=== PATIENT | male | born 1945 | race Caucasian/White ===

== ENCOUNTER 2017-05-30 11:26 | Emergency (ER) | payer BC, MEDICARE ==
--- NOTE | 2017-05-30 12:15 | RAD ---
INDICATION: Short of breath COMPARISON: September 04, 2011 TECHNIQUE: PA and lateral dual-energy views were obtained. FINDINGS: Bones/Soft Tissues: There are no acute bony findings. Cardiomediastinal: The cardiomediastinal silhouette is normal. Lungs: There are no infiltrates. There is mild hyperinflation Pleura: There are no pleural effusions. Other: None IMPRESSION: NO ACTIVE DISEASE
[2017-05-30 13:20] LABS: ABS Basophils 0.1 10^3/ul (0-0.2); ABS Eosinophils 0 10^3/ul (0-0.6); ABS Lymphocytes 1.1 10^3/ul (1.0-4.8); ABS Monocytes 0.6 10^3/ul (0-0.8); ABS Neutrophils 6.3 10^3/ul (1.5-7.7); ABS Nucleated RBC 0 10^3/ul; Eosinophil % 0.2 % (0-6); Hematocrit 46 % (42-52); Hemoglobin 15.9 g/dl (14.0-18.0); Lymphocyte % 13.5 % (25-47); Mean Corpuscular HGB Conc 34 g/dl (31-36); Mean Corpuscular Hemoglobin 30 pg (27-31); Mean Corpuscular Volume 88 fL (80-94); Mean Platelet Volume 7 um3 (7.4-10.4); Nucleated Red Blood Cells % 0; Platelet Count 256 10^3/ul (150-450); Red Blood Count 5.24 10^6/ul (4.0-5.4); Red Cell Distribution Width 14 % (10.5-15); White Blood Count 8.1 10^3/ul (3.5-10.8)
[2017-05-30 13:26] LABS: INR 0.98 (0.77-1.02)
[2017-05-30 13:34] LABS: EGFR Non-African American 79.6 (>60)
[2017-05-30] MEDS ORDERED: Albuterol/Ipratropium NEB.SOL* Albuterol 2.5 MG/Ipratropium 0.5 MG 3 ML INH ONE (14:10)
[2017-05-30] MEDS ORDERED: NS 0.9% 1000 ML* 1,000 ML IV ONE (14:10)
[2017-05-30 15:34] VITALS: BP 135/71
--- NOTE | 2017-05-30 18:20 | ED ---
Salomon Rosenthal Natalie, scribed for Tristian Obregon MD on 05/30/17 at 1418 . Shortness of Breath - HPI Summary HPI Summary: The pt is a 71 y/o M presenting to the ED c/o SOB starting five days ago. The patient was at the gym last week and exerted more energy than normal. The pt describes the pain as exertion discomfort. The discomfort is aggravated by walking fast and is alleviated by rest. The patient has treated the pain with nothing GUIDE TRAVEL. Pt additionally c/o increased pulsed (nml 76, walking at 90), insomnia (3-5 hours a night), anxiety, dizziness, and buzzing in ear. Pt denies diarrhea, vomiting, cough, congestion, chest pain, and edema. He had a similar episode about a year ago. The patient has not traveled recently. His most recent stress test was this fall, each of his past stress tests have been normal. He takes prostate medication at night. He has an appointment to get a Holter monitor on 06/02/2017. He does not smoke or drink. - History of Current Complaint Chief Complaint: EDGeneral Time Seen by Provider: 05/30/17 11:49 Hx Obtained From: Patient Onset/Duration: Lasting Days - started five days ago after going to the gym, Still Present Timing: Constant Current Severity: Moderate Aggrevating Factors: Other - walking fastr Alleviating Factors: Other - rest Associated Signs & Symptoms: Negative - NEGATIVE: diarrhea, vomitting, cough, congestion, chest pain, edema, Dizzy Related History: Similar Episode - similar episode one year ago - Allergy/Home Medications Allergies/Adverse Reactions: Allergies Allergy/AdvReac Type Severity Reaction Status Date / Time No Known Allergies Allergy Verified 05/30/17 11:35 PMH/Surg Hx/FS Hx/Imm Hx Previously Healthy: No Cardiovascular History: Reports: Hx Hypertension Infectious Disease History: No Infectious Disease History: Denies: Traveled Outside the [place] in Last 30 Days - Family History Known Family History: Positive: Hypertension, Diabetes - Social History Alcohol Use: None Substance Use Type: Reports: None Smoking Status (MU): Never Smoked Tobacco Review of Systems Negative: Fever Positive: Other - buzzing in ear Positive: Other - increased pulse. Negative: Chest Pain Positive: Shortness Of Breath, Other - NEGATIVE: congestion. Negative: Cough Negative: Vomiting, Diarrhea Negative: Edema Neurological: Other - insomnia, dizziness All Other Systems Reviewed And Are Negative: Yes Physical Exam Triage Information Reviewed: Yes Vital Signs On Initial Exam: Initial Vitals Temp Pulse Resp BP Pulse Ox 98.4 F 77 16 150/70 96 05/30/17 11:35 05/30/17 11:35 05/30/17 11:35 05/30/17 11:35 05/30/17 11:35 Vital Signs Reviewed: Yes Appearance: Positive: Well-Appearing, No Pain Distress Skin: Positive: Warm, Skin Color Reflects Adequate Perfusion, Dry Head/Face: Positive: Normal Head/Face Inspection Eyes: Positive: EOMI, GORAN ENT: Positive: Normal ENT inspection Neck: Positive: Supple, Nontender Respiratory/Lung Sounds: Positive: Clear to Auscultation, Breath Sounds Present Cardiovascular: Positive: RRR, Pulses are Symmetrical in both Upper and Lower Extremities, Other - HR did not change with alteration or position Abdomen Description: Positive: Nontender, Soft Bowel Sounds: Positive: Present Musculoskeletal: Positive: Normal, Strength/ROM Intact Neurological: Positive: Normal, Sensory/Motor Intact, Alert, Oriented to Person Place, Time - She Coma Scale Coma Scale Total: 15 Diagnostics - Vital Signs Vital Signs Temp Pulse Resp BP Pulse Ox 05/30/17 13:39 66 15 98 05/30/17 13:37 134/70 05/30/17 13:29 98.7 F 72 16 151/71 97 05/30/17 11:35 98.4 F 77 16 150/70 96 - Laboratory Lab Results: Lab Results 05/30/17 05/30/17 05/30/17 Range/Units 12:55 12:55 12:55 WBC 8.1 (3.5-10.8) 10^3/ul RBC 5.24 (4.0-5.4) 10^6/ul Hgb 15.9 (14.0-18.0) g/dl Hct 46 (42-52) % MCV 88 (80-94) fL MCH 30 (27-31) pg MCHC 34 (31-36) g/dl RDW 14 (10.5-15) % Plt Count 256 (150-450) 10^3/ul MPV 7 L (7.4-10.4) um3 Neut % (Auto) 78.3 (38-83) % Lymph % (Auto) 13.5 L (25-47) % [place] % (Auto) 7.3 (1-9) % Eos % (Auto) 0.2 (0-6) % Baso % (Auto) 0.7 (0-2) % Absolute Neuts (auto) 6.3 (1.5-7.7) 10^3/ul Absolute Lymphs (auto) 1.1 (1.0-4.8) 10^3/ul Absolute Monos (auto) 0.6 (0-0.8) 10^3/ul Absolute Eos (auto) 0 (0-0.6) 10^3/ul Absolute Basos (auto) 0.1 (0-0.2) 10^3/ul Absolute Nucleated RBC 0 10^3/ul Nucleated RBC % 0 INR (Anticoag Therapy) (0.77-1.02) Sodium 137 (133-145) mmol/L Potassium 3.9 (3.5-5.0) mmol/L Chloride 104 (101-111) mmol/L Carbon Dioxide 25 (22-32) mmol/L Anion Gap 8 (2-11) mmol/L BUN 14 (6-24) mg/dL Creatinine 0.93 (0.67-1.17) mg/dL Est GFR ( Amer) 102.4 (>60) Est GFR (Non-Af Amer) 79.6 (>60) BUN/Creatinine Ratio 15.1 (8-20) Glucose 106 H (70-100) mg/dL Lactic Acid (0.5-2.0) mmol/L Calcium 9.8 (8.6-10.3) mg/dL Total Bilirubin 0.70 (0.2-1.0) mg/dL AST 20 (13-39) U/L ALT 13 (7-52) U/L Alkaline Phosphatase 65 (34-104) U/L Troponin I 0.00 (<0.04) ng/mL C-Reactive Protein 1.29 (< 5.00) mg/L B-Natriuretic Peptide 55 ( - 100) pg/mL Total Protein 7.3 (6.4-8.9) g/dL Albumin 4.3 (3.2-5.2) g/dL Globulin 3.0 (2-4) g/dL Albumin/Globulin Ratio 1.4 (1-3) 05/30/17 05/30/17 Range/Units 12:55 12:55 WBC (3.5-10.8) 10^3/ul RBC (4.0-5.4) 10^6/ul Hgb (14.0-18.0) g/dl Hct (42-52) % MCV (80-94) fL MCH (27-31) pg MCHC (31-36) g/dl RDW (10.5-15) % Plt Count (150-450) 10^3/ul MPV (7.4-10.4) um3 Neut % (Auto) (38-83) % Lymph % (Auto) (25-47) % [place] % (Auto) (1-9) % Eos % (Auto) (0-6) % Baso % (Auto) (0-2) % Absolute Neuts (auto) (1.5-7.7) 10^3/ul Absolute Lymphs (auto) (1.0-4.8) 10^3/ul Absolute Monos (auto) (0-0.8) 10^3/ul Absolute Eos (auto) (0-0.6) 10^3/ul Absolute Basos (auto) (0-0.2) 10^3/ul Absolute Nucleated RBC 10^3/ul Nucleated RBC % INR (Anticoag Therapy) 0.98 (0.77-1.02) Sodium (133-145) mmol/L Potassium (3.5-5.0) mmol/L Chloride (101-111) mmol/L Carbon Dioxide (22-32) mmol/L Anion Gap (2-11) mmol/L BUN (6-24) mg/dL Creatinine (0.67-1.17) mg/dL Est GFR ( Amer) (>60) Est GFR (Non-Af Amer) (>60) BUN/Creatinine Ratio (8-20) Glucose (70-100) mg/dL Lactic Acid 0.8 (0.5-2.0) mmol/L Calcium (8.6-10.3) mg/dL Total Bilirubin (0.2-1.0) mg/dL AST (13-39) U/L ALT (7-52) U/L Alkaline Phosphatase (34-104) U/L Troponin I (<0.04) ng/mL C-Reactive Protein (< 5.00) mg/L B-Natriuretic Peptide ( - 100) pg/mL Total Protein (6.4-8.9) g/dL Albumin (3.2-5.2) g/dL Globulin (2-4) g/dL Albumin/Globulin Ratio (1-3) Result Diagrams: 05/30/17 12:55 05/30/17 12:55 Lab Statement: Any lab studies that have been ordered have been reviewed, and results considered in the medical decision making process. - Radiology CXR Xray Interpretation: No Acute Changes - No active disease. ED physician has reviewed this report. Radiology Interpretation Completed By: Radiologist - EKG 11:42 Cardiac Rate: NL EKG Rhythm: Sinus Rhythm - 63 BPM EKG Interpretation: Nml axis. Nml ST. Course/Dx - Course Course Of Treatment: anxious gentlemen who leads very active lifestyle. C/O postural changes in HR and some SOB. HR 70s now and O2 sat and HR not significantly altered by brisk walking in the ED. ECG, etc have been normal. It appears this may be from some mild dehydation and an effect of his alpha alison taken for BPH. He has holter set up for 10:30 morning and will f/u with PMD. - Diagnoses Provider Diagnoses: Mild dehydration, Adverse effects of medication Discharge - Discharge Plan Condition: Good Disposition: HOME Patient Education Materials: Dehydration (ED) Referrals: Lewis HERZOG,August Dillon [Primary Care Provider] - Additional Instructions: see your doctor as scheduled on Friday for holter monitor. Stay well hydrated. Expect lightheadedness when you stand first thing in the morning from your prostate medications. Return if worse, new symptoms or other concerns. The documentation as recorded by the Salomon slater Natalie accurately reflects the service I personally performed and the decisions made by me, Tristian Obregon MD.
== END 2017-05-30 15:42 | disposition home or self-care (01) ==
LOC: ED 11:26
DX: T50.905A Adverse effect of unspecified drugs, medicaments and biological substances, initial encounter (principal); R06.02 Shortness of breath; E86.0 Dehydration; Y92.9 Unspecified place or not applicable
CPT/HCPCS: 36415; 71020; 80053; 83605; 83880; 84484; 85025; 85610; 86140; 87040; 87502; 93005; 94640; 96360; 99283; A9270-GY

== ENCOUNTER 2017-06-13 20:12 | Emergency (ER) | payer BC, MEDICARE ==
[2017-06-13 22:45] LABS: ABS Basophils 0.1 10^3/ul (0-0.2); ABS Eosinophils 0.1 10^3/ul (0-0.6); ABS Lymphocytes 1.5 10^3/ul (1.0-4.8); ABS Monocytes 0.8 10^3/ul (0-0.8); ABS Neutrophils 6.8 10^3/ul (1.5-7.7); ABS Nucleated RBC 0 10^3/ul; Eosinophil % 1.4 % (0-6); Hematocrit 42 % (42-52); Hemoglobin 14.7 g/dl (14.0-18.0); Lymphocyte % 16.2 % (25-47); Mean Corpuscular HGB Conc 35 g/dl (31-36); Mean Corpuscular Hemoglobin 31 pg (27-31); Mean Corpuscular Volume 88 fL (80-94); Mean Platelet Volume 6 um3 (7.4-10.4); Nucleated Red Blood Cells % 0.1; Platelet Count 340 10^3/ul (150-450); Red Blood Count 4.81 10^6/ul (4.0-5.4); Red Cell Distribution Width 14 % (10.5-15); White Blood Count 9.3 10^3/ul (3.5-10.8)
[2017-06-13] MEDS ORDERED: NS 0.9% 1000 ML* 1,000 ML IV ONE (22:59)
[2017-06-13] MEDS ORDERED: Iohexol 350* (CONTRAST) 500 ML MDV IV ONE (23:23)
--- NOTE | 2017-06-13 23:42 | ED ---
Cornelio Rosenthal Nilda, scribed for Tano Morejon MD on 06/13/17 at 2208 . Respiratory - HPI Summary HPI Summary: This patient is a 71 year old M with a chief complaint of constant air hunger for past 2 weeks with D-Dimer of [address] Mary Anne Alejo sends pt in for CTA of the chest. The patient rates the pain 0/10 in severity. Symptoms aggravated by exertion, and alleviated by rest. Patient reports abd tightness secondary to stress, diaphoresis, and mild blood tinge when blowing his nose (likely secondary to sleep apnea). Pt states that he is "stressed in nearly every aspect of my life-home, work." Patient denies CP, chest discomfort , dyspnea, fever, chills, epistaxis, bloody stools, and hemoptysis. Pt denies recent prolonged travel and recent trauma except for left shoulder injury ( anterior deltoid) while working out. PMHx includes sleep apnea. - History of Current Complaint Chief Complaint: EDShortnessOfBreath Stated Complaint: ABNORMAL LABS Time Seen by Provider: 06/13/17 21:45 Hx Obtained From: Patient, Medical Records Onset/Duration: Sudden Onset, Lasting Weeks - 2 weeks, Still Present Timing: Constant Pain Intensity: 0 Character: Dyspnea on Exertion Aggravating Factor(s): Exertion Alleviating Factor(s): Rest Associated Signs and Symptoms: SOB, Diaphoresis - Allergy/Home Medications Allergies/Adverse Reactions: Allergies Allergy/AdvReac Type Severity Reaction Status Date / Time No Known Allergies Allergy Verified 05/30/17 11:35 PMH/Surg Hx/FS Hx/Imm Hx Cardiovascular History: Reports: Hx Hypertension Respiratory History: Reports: Hx Sleep Apnea Sensory History: Denies: Hx Deafness EENT History: Denies: Hx Deafness Infectious Disease History: No Infectious Disease History: Denies: Traveled Outside the [place] in Last 30 Days - Family History Known Family History: Positive: Hypertension, Diabetes Negative: Cardiac Disease, Blood Disorder - no blood clots - Social History Occupation: Employed Full-time Lives: With Family Alcohol Use: None Substance Use Type: Reports: None Smoking Status (MU): Never Smoked Tobacco Review of Systems Negative: Fever, Chills Negative: Erythema Positive: Other - mild blood tinge while blowing nose possibly secondary to sleep apnea. Negative: Epistaxis, Sore Throat Negative: Palpitations, Chest Pain Positive: Shortness Of Breath, Other - air hunger; negative hemoptysis, dyspnea. Negative: Cough Positive: Other - negative bloody stools. Negative: Abdominal Pain, Vomiting, Nausea Negative: dysuria, hematuria Negative: Myalgia, Edema Negative: Rash Neurological: Other - negative dizziness All Other Systems Reviewed And Are Negative: Yes Physical Exam - Summary Physical Exam Summary: Constitutional: Well-developed, Well-nourished, Alert. (-) Distressed Skin: Warm, Dry HENT: Normocephalic; Atraumatic Eyes: Conjunctiva normal Neck: Musculoskeletal ROM normal neck. (-) JVD, (-) Stridor, (-) Tracheal deviation Cardio: Rhythm regular, rate normal, Heart sounds normal; Intact distal pulses; The pedal pulses are 2+ and symmetric. Radial pulses are 2+ and symmetric. (-) Murmur Pulmonary/Chest wall: Effort normal. (-) Respiratory distress, (-) Wheezes, (-) Rales Abd: Soft, (-) Tenderness, (-) Distension, (-) Guarding, (-) Rebound Musculoskeletal: (-) Edema, mild tenderness along left bicep, no swelling, no redness. Lymph: (-) Cervical adenopathy Neuro: Alert, Oriented x3 Psych: Mood and affect Normal Triage Information Reviewed: Yes Vital Signs On Initial Exam: Initial Vitals Temp Pulse Resp BP Pulse Ox 98.7 F 73 16 135/73 99 06/13/17 20:19 06/13/17 20:19 06/13/17 20:19 06/13/17 20:19 06/13/17 20:19 Vital Signs Reviewed: Yes Diagnostics - Vital Signs Vital Signs Temp Pulse Resp BP Pulse Ox 06/13/17 20:19 98.7 F 73 16 135/73 99 - Laboratory Result Diagrams: 06/13/17 22:25 Lab Statement: Any lab studies that have been ordered have been reviewed, and results considered in the medical decision making process. - EKG 2203 Cardiac Rate: NL EKG Rhythm: Sinus Rhythm - 62 bpm EKG Interpretation: no STEMI Disposition - Course Assessment/Plan: This patient is a 71 year old M with a chief complaint of constant air hunger for past 2 weeks with D-Dimer of [address] Mary Anne Alejo sends pt in for CTA of the chest. The patient rates the pain 0/10 in severity. Symptoms aggravated by exertion, and alleviated by rest. Patient reports abd tightness secondary to stress, diaphoresis, and mild blood tinge when blowing his nose (likely secondary to sleep apnea). Pt states that he is "stressed in nearly every aspect of my life-home, work." Patient denies CP, chest discomfort, dyspnea, fever, chills, epistaxis, bloody stools, and hemoptysis. Pt denies recent prolonged travel and recent trauma except for left shoulder injury (anterior deltoid) while working out. PMHx includes sleep apnea. Pending Labs, EKG, and CTA Chest. An EKG reveals 62 bpm, NSR, no STEMI. This pt will be signed out to Dr. Low, pending shift change, awaiting CTA chest. Dx of SOB and elevated D-dimer. - Diagnoses Provider Diagnoses: SOB (shortness of breath), Elevated d-dimer Discharge - Discharge Plan Condition: Stable Disposition: OTHER Discharge Disposition Comment: s/o to Dr. Low, pending shift change, awaiting CTA Chest. Referrals: Lewis HERZOG,August Dillon [Primary Care Provider] - The documentation as recorded by the Cornelio slater Nilda accurately reflects the service I personally performed and the decisions made by me, Tano Morejon MD.
[2017-06-14 03:32] VITALS: BP 135/102
--- NOTE | 2017-06-14 08:38 | RAD ---
Indication: Shortness of breath, positive d-dimer. Contrast: Administered 62.0 ml of VISAPAQUE 320 mg/ml CTA of the chest was performed without IV contrast demonstration. The pulmonary arterial tree is well opacified. There is no evidence of pulmonary embolus. No filling defects are noted. The aorta demonstrates no evidence of aortic dissection. No aneurysmal dilatation is noted. The heart demonstrates no pericardial effusion. Inferior thyroid lobes are unremarkable. There is no mediastinal or hilar adenopathy. The heart demonstrates no pericardial effusion. The trachea and major bronchi appear patent. The lung fraga demonstrate no evidence of alveolar consolidation. No pneumothorax is noted. The visualized abdominal organs are otherwise unremarkable. Axilla demonstrates no evidence of abnormal adenopathy. IMPRESSION: No pulmonary embolus is noted. No evidence of aortic dissection is noted. No pulmonary nodules are noted.
--- NOTE | 2017-06-14 11:27 | RAD ---
Indication: Increased d-dimer. Duplex Doppler sonography of the deep venous system of both lower extremities was performed. Bilaterally the common femoral veins, proximal greater saphenous veins, proximal deep femoral veins, femoral veins, popliteal veins, posterior tibial veins and peroneal veins appear patent and compressible. IMPRESSION: NO EVIDENCE OF DEEP VENOUS THROMBOSIS OF EITHER LOWER EXTREMITY IS PRESENT.
== END 2017-06-14 03:31 | disposition home or self-care (01) ==
LOC: ED 20:12
DX: R06.02 Shortness of breath (principal); R79.1 Abnormal coagulation profile; Z86.79 Personal history of other diseases of the circulatory system
CPT/HCPCS: 36415; 71275; 80053; 83605; 84484; 85025; 87040; 93005; 93970; 96360; 99283; Q9967

== ENCOUNTER 2017-06-24 12:46 | Inpatient (IN) | payer BC, MEDICARE ==
--- OUTSIDE RECORDS SUMMARY | 2017-06-24 13:25 | XMS REPORT ---
:1945 External Reference #:[id number] Author Organization [employer] [facility] [employer] Address [address] [address] Phone [phone] Care Team Providers Name Role Phone Edison Hidalgo MD Primary Care Physician Unavailable Payers Type Date Identification Numbers Payment Provider Subscriber Commercial Policy Number: [id number] [facility] August Johnstonler PayID: [id number] [address] [place] [address] Medigap Part B Policy Number: [id number] Medicare Aguust Johnstonler PayID: [id number] [address] [place] [address] Medigap Part B Policy Number: [id number] [facility] August Johnstonler PayID: [id number] [address] [place] [address] Problems Date Description Provider Status Onset: 06/19/2017 Anxiety state Nino Browning MD Active Onset: 06/19/2017 Bilateral tinnitus Nino Browning MD Active Onset: 06/19/2017 Dizziness and giddiness Nino Browning MD Active Onset: 06/19/2017 Lyme disease Nino Browning MD Active Social History Type Date Description Comments ETOH Use Occasionally consumes alcohol Smoking Patient has never smoked Allergies, Adverse Reactions, Alerts Date Description Reaction Status Severity Comments 06/19/2017 NKDA active Medications Medication Date Status Form Strength Qnty SIG Indications Ordering Provider Doxycycline Active Capsules 100mg 1 bid Unknown Hyclate 00 Tamsulosin HCL Active Capsules 0.4mg 1 qd Unknown 00 Finasteride Active Tablets 5mg 1 qd Unknown 00 Polyethylene Active Powder 3350NF prn Unknown Glycol 3350 00 Vital Signs Date Vital Result Comment 06/19/2017 Height 66.5 inches 5'6.50" Weight 142.50 lb Heart Rate 76 /min BP Systolic Sitting 120 mmHg BP Diastolic Sitting 78 mmHg BMI (Body Mass Index) 22.7 kg/m2 Results Description No Information Procedures Date CPT Code Description Status 07/08/2010 90330 Color Flow Doppler/Interp & Reprt Completed 07/08/2010 71836 Pulse Wave/Continuous-Interp.RPT Completed 07/08/2010 44395 ECHO Transthorasic Realtime 2D W Doppler & Color Completed Flow Hosp 07/08/2010 27387 Treadmill Interp/Report Only Completed 07/08/2010 55969 Treadmill Interp/Report Only Completed 07/08/2010 84100 Stress Test Supervsn W/Out I/R Completed 07/08/2010 94048 Stress Test Supervsn W/Out I/R Completed 07/08/2010 95949 EKG, Interpretation Only Completed 07/07/2010 42728 EKG, Interpretation Only Completed 07/06/2010 84561 EKG, Interpretation Only Completed Encounters Type Date Location Provider CPT E/M Dx Office Visit 07/08/2010 1:45p [facility] Lam Bonds, 56164 427.0 MLindyDLindy [phone] Office Visit 07/07/2010 2:18p [facility] Lam Bonds M.D. 38989 427.0 427.89 401.1 794.31 Plan of Care 06/19/2017 - Nino Browning, MDA69.20 Lyme disease, [id number] Dizziness and [id number] Tinnitus, bilateralNew Xrays:MRI Brain W/OFollow up:3 [id number] Anxiety disorder, unspecified
[2017-06-24 13:35] LABS: ABS Basophils 0.1 10^3/ul (0-0.2); ABS Eosinophils 0.1 10^3/ul (0-0.6); ABS Lymphocytes 1.7 10^3/ul (1.0-4.8); ABS Monocytes 0.8 10^3/ul (0-0.8); ABS Neutrophils 7.5 10^3/ul (1.5-7.7); ABS Nucleated RBC 0 10^3/ul; Eosinophil % 0.6 % (0-6); Hematocrit 47 % (42-52); Hemoglobin 16.2 g/dl (14.0-18.0); Lymphocyte % 16.8 % (25-47); Mean Corpuscular HGB Conc 35 g/dl (31-36); Mean Corpuscular Hemoglobin 30 pg (27-31); Mean Corpuscular Volume 87 fL (80-94); Mean Platelet Volume 6 um3 (7.4-10.4); Nucleated Red Blood Cells % 0.1; Platelet Count 309 10^3/ul (150-450); Red Blood Count 5.37 10^6/ul (4.0-5.4); Red Cell Distribution Width 14 % (10.5-15); White Blood Count 10.2 10^3/ul (3.5-10.8)
[2017-06-24 13:54] LABS: EGFR Non-African American 79.6 (>60)
[2017-06-24] MEDS ORDERED: NS 0.9% 1000 ML* 1,000 ML IV ONE ×2 (13:55→15:45)
[2017-06-24] MEDS ORDERED: Levofloxacin 750 MG IVPREMIX(* 750 MG/150 ML BAG IVPB ONE (13:56)
[2017-06-24 15:11] LABS: Urine Appearance Clear; Urine Blood 1+ (Negative); Urine Color Straw; Urine Ketones Negative (Negative); Urine Protein Negative (Negative); Urine Specific Gravity 1.009 (1.010-1.030); Urine Urobilinogen Negative (Negative)
[2017-06-24] MEDS ORDERED: Ondansetron INJ* 2 MG/ML VIAL IV PRN (15:40)
--- NOTE | 2017-06-24 17:11 | RAD ---
Indication: Confusion. Sagittal and axial T1, axial T2, FLAIR, diffusion and susceptibility weighted images of the brain were obtained. Ventricular structures are midline. No midline shift is noted. There is central and cortical atrophy noted. Prominent cisterna magna is noted. The FLAIR images demonstrates no vasogenic edema. No restriction of diffusion is noted. Susceptibility weighted images demonstrates no susceptibility weighted artifact. The paranasal sinuses and mastoid air cells are otherwise unremarkable. IMPRESSION: Central and cortical atrophy. No intracranial mass or hemorrhage is identified.
--- NOTE | 2017-06-24 20:32 | HP ---
CC: Mary Anne Alejo MD from the [facility]; Dr. Emanuel; Dr. Browning * HISTORY AND PHYSICAL: DATE OF ADMISSION: 06/24/17 PRIMARY CARE PROVIDER: Mary Anne Alejo MD from the [facility]. CONSULTING INFECTIOUS DISEASE SPECIALIST: Dr. Emanuel. CONSULTING NEUROLOGIST: Dr. Browning. ATTENDING PROVIDER: Dr. Castillo * (DICTATED BY REVA SANTOS NP) CHIEF COMPLAINT: Altered mental status. HISTORY OF PRESENT ILLNESS: Mr. Waldron is a 71-year-old male patient. He has a history of hypertension, hyperlipidemia. He has a history of BPH, kidney stones in the past. He comes in to our ED today. According to the patient, he has had a 2- week period of progressive decline with his mentation. He has been more confused. His mentation has been altered. He apparently has had 10- pound weight loss, and this was obtained from discussion with Dr. Emanuel. The patient states he has had some suprapubic pain. He has had some dysuria. He felt warm last night. He states he has been having frequency. He was evaluated by his PCP prior to knowing these complaints and because of the general fatigue, anorexia, with him not feeling well, there was concern for Lyme. He was seen by Dr. Browning because of his mentation and him having trouble with some confusion and Dr. Browning felt that he needed an ID consult and Dr. Emanuel evaluated the patient today and after hearing these symptoms of dysuria, frequency, there was concern for a possible prostatitis. The patient was sent to the ER for this. On evaluation here, it was noted he had no fever, no white count, no CRP, so this was taken out of the differential. The patient states that he did have suprapubic pain. He has been having some dysuria off and on. He has been having some frequency. He has been having trouble emptying his bladder, but he had issues with this for some time. He denies any recent changes in medications. He denies having any back pain. He felt warm last night. He denies having any headaches. He does admit to having this 10-pound weight loss and fatigue. According to Dr. Emanuel's report, it was noted in his office that the patient appeared to be paranoid. He was having intermittent episodes of confusion. Because of these complaints, we were asked to evaluate for admission. PAST MEDICAL HISTORY: Significant for: 1. Hypertension. 2. Hyperlipidemia. 3. TOO. 4. BPH. 5. History of nephrolithiasis. PAST SURGICAL HISTORY: 1. He has had kidney stone surgery. 2. He has had tonsillectomy. MEDICATIONS: His home meds according to the list that was provided includes: 1. Zoloft 50 mg a day. 2. Flomax 0.4 mg daily. 3. Proscar 5 mg daily. 4. Doxycycline 100 mg p.o. b.i.d. ALLERGIES TO MEDICATIONS: Include no known drug allergies. FAMILY HISTORY: Both his parents had dementia and father had a history of CVA. SOCIAL HISTORY: He does not smoke, does not drink. 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 Surrogate decision maker is his . REVIEW OF SYSTEMS: There is no documented fever. He did admit to feeling warm last night. Denies having any significant weight change. There was no double vision. No ear discharge. Denied having any rhinorrhea. No sore throat. No thyroid enlargement. Denies having any chest pain. There is no orthopnea. No nocturnal dyspnea. There was no abdominal pain. There was no nausea, no vomiting. No dysuria. No frequency. There was no seizure. No loss of consciousness. No pruritus and no skin ulcerations. Review of 14 systems completed, all others negative. PHYSICAL EXAMINATION GENERAL: At this time, Mr. Waldron is a 71-year-old male patient. He appears to be well nourished, well developed. He does not appear to be in any acute distress. VITAL SIGNS: Blood pressure 132/80, pulse 76, respirations 18, O2 sat was 100% , temperature 98.6. HEENT: Head: Atraumatic, normocephalic. Eyes: EOMs intact. Sclerae anicteric and not pale. Throat: Oral mucosa appears to be moist. No oropharyngeal erythema. NECK: Supple. LUNGS: Clear to auscultation bilaterally. No wheezes, rales, or rhonchi. HEART: Sounds S1, S2. Regular rate and rhythm. No murmurs, rubs, or gallops. ABDOMEN: Soft, flat, nontender. Bowel sounds are present. No CVA tenderness. EXTREMITIES: Pulses were 2+ throughout. He is moving all 4 extremities with 5/ 5 strength. NEUROLOGIC: He is awake. He is alert. He appears to be oriented to time, place, and self. Tomato Grader were equal. No gross focal deficits. [id number], heel-to- chan intact bilaterally. SKIN: Intact. LABORATORY DATA/DIAGNOSTIC STUDIES: WBC of 10.2, RBC of 5.37, hemoglobin 16.2 , hematocrit 47, platelet count of 309,000. Sodium 132, potassium 3.9, chloride of 100, bicarb 25, BUN 17, creatinine 0.93, glucose of 115. Lactate 1.4. Calcium 9.9. Total bili 0.6, AST 20, ALT 16, alk phos 58. CRP less than 1. Albumin of 4.5. Urine showed low specific gravity, 1+ blood. He had an abdominal and bladder ultrasound, which showed impression: No renal calculi are seen. Dilated calyx versus small cyst in the left kidney. Enlarged heterogeneous prostate gland. The patient was unable to void at the end of the study. He had a CTA of the chest just done 11 days ago. It showed no PE, no evidence of aortic dissection. Old medical records were reviewed. ASSESSMENT AND PLAN: Mr. Waldron is a 71-year-old male patient coming in to the ED today with altered mental status, weight loss in the last 2 weeks. We were asked to evaluate for admission. He will be admitted under observation status for: 1. Altered mental status. Etiology of this is unclear. There could be underlying infection component, could be underlying neurological disease. Dr. Browning has been consulted. Dr. Emanuel has been consulted. We will get a B12 , TSH, ammonia, DANIEL, MRI of the brain, EEG, neuro checks and we will follow him. Holding off on antibiotics as I do not think there is any active infection currently. If he spikes a fever, we will sandra culture him and put him on broad spectrum antibiotics and we will follow. If his medical workup is negative, we may need to consider psychiatric evaluation, but we will continue with the medical evaluation first. 2. Hypertension. His blood pressure is stable. We will follow. 3. Hyperlipidemia. Follow with his primary. 4. Obstructive sleep apnea. I did order a CPAP. 5. Benign prostatic hypertrophy. Continue the Phillips. He did have urinary retention. He can follow with his urologist, Dr. Hummel. He does not appear to be actively infected. At this point, we will monitor. 6. History of nephrolithiasis. No pain noted. I think the blood in urine is probably from the Phillips insertion, but we will continue to follow. 7. DVT prophylaxis. He will be placed on heparin subcu. 8. Code status. Full code. 9. Fluids, electrolytes, and nutrition. He can have a regular diet. TIME SPENT: On admission was 60 minutes, greater than half the time was spent face- to-face with the patient obtaining my history and physical, other half time was spent going over the plan of care with the patient and implementing plan of care. I did discuss the plan of care with my attending, Dr. Castillo; she is in agreement. REVA SANTOS, MICHELLE [id number]/[facility] #: [id number] MAR
[2017-06-24] MEDS: Heparin VIAL(*) 5000 UNITS/ML VIAL (FIVE THOUSAND) SUBCUT SCH (21:21)
[2017-06-25] MEDS: Acetaminophen TAB* 325 MG PO PRN ×2 (05:39→09:58)
[2017-06-25] MEDS: Heparin VIAL(*) 5000 UNITS/ML VIAL (FIVE THOUSAND) SUBCUT SCH ×3 (06:02→20:37)
[2017-06-25 06:24] LABS: ABS Basophils 0.1 10^3/ul (0-0.2); ABS Eosinophils 0.1 10^3/ul (0-0.6); ABS Lymphocytes 1.7 10^3/ul (1.0-4.8); ABS Monocytes 0.9 10^3/ul (0-0.8); ABS Neutrophils 6.8 10^3/ul (1.5-7.7); ABS Nucleated RBC 0 10^3/ul; Eosinophil % 0.9 % (0-6); Hematocrit 45 % (42-52); Hemoglobin 16.1 g/dl (14.0-18.0); Lymphocyte % 18.1 % (25-47); Mean Corpuscular HGB Conc 36 g/dl (31-36); Mean Corpuscular Hemoglobin 31 pg (27-31); Mean Corpuscular Volume 87 fL (80-94); Mean Platelet Volume 7 um3 (7.4-10.4); Nucleated Red Blood Cells % 0; Platelet Count 290 10^3/ul (150-450); Red Blood Count 5.19 10^6/ul (4.0-5.4); Red Cell Distribution Width 14 % (10.5-15); White Blood Count 9.6 10^3/ul (3.5-10.8)
[2017-06-25 06:38] LABS: EGFR Non-African American 77.7 (>60)
[2017-06-25 06:46] LABS: INR 1.05 (0.77-1.02)
[2017-06-25] MEDS: Sertraline* 50 MG TAB PO SCH ×3 (09:58→16:45)
[2017-06-25] MEDS: Finasteride TAB* 5 MG PO SCH (09:58)
[2017-06-25] MEDS: Tamsulosin CAP* 0.4 MG PO SCH (09:58)
--- NOTE | 2017-06-25 11:05 | PN ---
Progress Note - Progress Note Date of Service: 06/25/17 SOAP: Subjective: CC: anorexia HPI: 71 year old man with 3-4 weeks anorexia, decreased energy, 10 lb weight loss, worsening nocturia and urinary hesitancy; he is concerned that we are defrauding his insurance and working to take away his medical license. His had noticed worsening of these ideas at night including that he had called the customer insight analyst's office from home about these issues. Found to have retained 500 cc urine and leos catheter placed, he wants to remove the catheter himself. No fever here. Objective: Vital Signs Temp 36.6 C 06/25/17 07:56 Pulse 57 06/25/17 07:56 Resp 16 06/25/17 07:56 BP 124/73 06/25/17 07:56 Pulse Ox 98 06/25/17 07:56 Intake & Output 06/24/17 06/25/17 06/25/17 18:59 06:59 18:59 Intake Total 1140 0 Output Total 2400 Balance 1140 -2400 Weight 143 lb Intake: IV Fluids 1140 Oral 0 Output: Urine 0 Leos 2400 Other: # Bowel Movements 0 Gen:Awake, no distress Neuro: flat affect, answers questions, oriented to name and location HEENT:PERRL, MMM Heart:RRR no murmur Lungs:CTA BL Abd:+BS NTND soft Skin: no rash Laboratory Results - last 24 hr 06/24/17 06/24/17 06/24/17 13:17 13:17 13:17 WBC 10.2 RBC 5.37 Hgb 16.2 Hct 47 MCV 87 MCH 30 MCHC 35 RDW 14 Plt Count 309 MPV 6 L Neut % (Auto) 73.4 Lymph % (Auto) 16.8 L [place] % (Auto) 8.2 Eos % (Auto) 0.6 Baso % (Auto) 1.0 Absolute Neuts (auto) 7.5 Absolute Lymphs (auto) 1.7 Absolute Monos (auto) 0.8 Absolute Eos (auto) 0.1 Absolute Basos (auto) 0.1 Absolute Nucleated RBC 0 Nucleated RBC % 0.1 INR (Anticoag Therapy) Sodium 132 L Potassium 3.9 Chloride 100 L Carbon Dioxide 25 Anion Gap 7 BUN 17 Creatinine 0.93 Est GFR ( Amer) 102.4 Est GFR (Non-Af Amer) 79.6 BUN/Creatinine Ratio 18.3 Glucose 115 H Lactic Acid 1.4 Calcium 9.9 Total Bilirubin 0.60 AST 20 ALT 16 Alkaline Phosphatase 58 Ammonia C-Reactive Protein < 1.00 Total Protein 7.3 Albumin 4.5 Globulin 2.8 Albumin/Globulin Ratio 1.6 Vitamin B12 TSH Urine Color Urine Appearance Urine pH Ur Specific [place] Urine Protein Urine Ketones Urine Blood Urine Nitrate Urine Bilirubin Urine Urobilinogen Ur Leukocyte Esterase Urine WBC (Auto) Urine RBC (Auto) Urine Bacteria Urine Glucose 06/24/17 06/24/17 06/24/17 13:45 18:30 18:30 WBC RBC Hgb Hct MCV MCH MCHC RDW Plt Count MPV Neut % (Auto) Lymph % (Auto) [place] % (Auto) Eos % (Auto) Baso % (Auto) Absolute Neuts (auto) Absolute Lymphs (auto) Absolute Monos (auto) Absolute Eos (auto) Absolute Basos (auto) Absolute Nucleated RBC Nucleated RBC % INR (Anticoag Therapy) Sodium Potassium Chloride Carbon Dioxide Anion Gap BUN Creatinine Est GFR ( Amer) Est GFR (Non-Af Amer) BUN/Creatinine Ratio Glucose Lactic Acid Calcium Total Bilirubin AST ALT Alkaline Phosphatase Ammonia 42 C-Reactive Protein Total Protein Albumin Globulin Albumin/Globulin Ratio Vitamin B12 358 TSH 2.82 Urine Color Straw Urine Appearance Clear Urine pH 8.0 Ur Specific [place] 1.009 L Urine Protein Negative Urine Ketones Negative Urine Blood 1+ H Urine Nitrate Negative Urine Bilirubin Negative Urine Urobilinogen Negative Ur Leukocyte Esterase Negative Urine WBC (Auto) Trace(0-5/hpf) Urine RBC (Auto) Trace(0-2/hpf) Urine Bacteria Absent Urine Glucose Negative 06/25/17 06/25/17 06/25/17 05:57 05:57 05:57 WBC 9.6 RBC 5.19 Hgb 16.1 Hct 45 MCV 87 MCH 31 MCHC 36 RDW 14 Plt Count 290 MPV 7 L Neut % (Auto) 71.3 Lymph % (Auto) 18.1 L [place] % (Auto) 9.1 H Eos % (Auto) 0.9 Baso % (Auto) 0.6 Absolute Neuts (auto) 6.8 Absolute Lymphs (auto) 1.7 Absolute Monos (auto) 0.9 H Absolute Eos (auto) 0.1 Absolute Basos (auto) 0.1 Absolute Nucleated RBC 0 Nucleated RBC % 0 INR (Anticoag Therapy) 1.05 H Sodium 133 Potassium 4.2 Chloride 102 Carbon Dioxide 23 Anion Gap 8 BUN 14 Creatinine 0.95 Est GFR ( Amer) 99.9 Est GFR (Non-Af Amer) 77.7 BUN/Creatinine Ratio 14.7 Glucose 106 H Lactic Acid Calcium 9.5 Total Bilirubin AST ALT Alkaline Phosphatase Ammonia C-Reactive Protein Total Protein Albumin Globulin Albumin/Globulin Ratio Vitamin B12 TSH Urine Color Urine Appearance Urine pH Ur Specific [place] Urine Protein Urine Ketones Urine Blood Urine Nitrate Urine Bilirubin Urine Urobilinogen Ur Leukocyte Esterase Urine WBC (Auto) Urine RBC (Auto) Urine Bacteria Urine Glucose Assessment: 1. anorexia and weight loss, paranoid ideation; infectious and metabolic workup so far unrevealing; does have urinary retention which may be contributing to some of his symptoms, but the differential includes rapidly progressive dementia , primary psychiatric issues including depression 2. BPH with urinary retention Plan: 1. Syphilis IgG pending 2. EEG done and pending 3. psychiatric consultation 4. leos catheter Discussed with Dr Graham
[2017-06-25] MEDS ORDERED: Midazolam* 1 MG/ML 5 ML VIAL (5 MG) ONE (15:05)
[2017-06-25] MEDS ORDERED: fentaNYL* 50 MCG/ML 2 ML VIAL (100 MCG VIAL) ONE (15:06)
[2017-06-25] MEDS ORDERED: Polyethylene Glycol 3350* 17 GM PACKET PO PRN (16:14)
--- NOTE | 2017-06-25 16:29 | PN ---
Subjective Date of Service: 06/25/17 Interval History: No overnight events. He expresses concern that his insurance will not pay for this hospitalization and that the MRI is going to be too expensive. He denies any pain, but does note some suprapubic discomfort. Family History: Unchanged from Admission Social History: Unchanged from Admission Past Medical History: Unchanged from Admission Objective Active Medications: Acetaminophen (Tylenol Tab*) 650 mg PO Q4H PRN PRN Reason: FEVER/PAIN Last Admin: 06/25/17 09:58 Dose: 650 mg Finasteride (Proscar Tab*) 5 mg PO DAILY PENDING SALE TO [facility] Last Admin: 06/25/17 09:58 Dose: 5 mg Heparin Sodium (Porcine) (Heparin Vial(*)) 5,000 units SUBCUT Q8HR PENDING SALE TO [facility] Last Admin: 06/25/17 15:30 Dose: Not Given Ondansetron HCl (Zofran Inj*) 4 mg IV Q6H PRN PRN Reason: NAUSEA Polyethylene Glycol/Electrolytes (Miralax*) 17 gm PO DAILY PRN PRN Reason: CONSTIPATION Quetiapine Fumarate (Seroquel Tab*) 25 mg PO BEDTIME PENDING SALE TO [facility] Sertraline HCl (Zoloft*) 50 mg PO DAILY PENDING SALE TO [facility] Last Admin: 06/25/17 10:04 Dose: Not Given Tamsulosin HCl (Flomax Cap*) 0.4 mg PO DAILY PENDING SALE TO [facility] Last Admin: 06/25/17 09:58 Dose: 0.4 mg Vital Signs - 8 hr 06/25/17 10:57 Temperature 97.5 F Pulse Rate 69 Respiratory 16 Rate Blood Pressure 128/64 (mmHg) O2 Sat by Pulse 99 Oximetry Oxygen Devices in Use Now: None Appearance: alert, well kept man Eyes: No Scleral Icterus Ears/Nose/Mouth/Throat: NL Teeth, Lips, Gums, - - no asterixis Neck: NL Appearance and Movements; NL JVP Respiratory: Symmetrical Chest Expansion and Respiratory Effort, Clear to Auscultation Cardiovascular: NL Sounds; No Murmurs; No JVD, RRR Abdominal: NL Sounds; No Tenderness; No Distention, - - leos catheter in place , mild tenderness in suprapubic area Lymphatic: No Cervical Adenopathy Extremities: No Edema Skin: No Rash or Ulcers Neurological: Alert and Oriented x 3, - - cognition is very clear, coordination is in tact, and follows complex commands. He expresses paranoid ideations. Result Diagrams: 06/25/17 05:57 06/25/17 05:57 Assess/Plan/Problems-Billing Assessment: - Patient Problems (1) Encephalopathy acute Current Visit: Yes Status: Acute Code(s): G93.40 - ENCEPHALOPATHY, UNSPECIFIED SNOMED Code(s): 6037384 Comment: the timeline is actually subacute, over the past few weeks. He demonstrates some psychotic features, but as per Dr. Browning's consultation, I agree with ruling out an organic cause with an LP and a complete csf analysis. A psychiatriatic evaluation is also appreciated. Thus far a metabolic and infectious work up are unremarkable. While acute urinary retention can contribute to delirium, the timeline is not consistent with this as the cause. I appreciate Dr. Browning and Dr. Lopez's input. (2) Acute urinary retention Current Visit: Yes Status: Acute Code(s): R33.8 - OTHER RETENTION OF URINE SNOMED Code(s): 880778170 Comment: relieved with leos catheter. He does have history of BPH, but is already on flomax and finasteride. We could increase the flomax, but will hold off for now. He is not on any anticholinergic medications that could contribute. Continue with leos.
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
--- NOTE | 2017-06-25 21:00 | CONS ---
CC: Dr. Mary Anne Alejo from [facility] in [place] * NEUROLOGIC CONSULTATION REPORT: DATE OF CONSULT: PATIENT OF: Dr. Graham; Dr. Emanuel; Dr. Mary Anne Alejo in [facility] in [place]. HISTORY OF PRESENT ILLNESS: This is a 71-year-old man who I am asked to evaluate for rapidly worsening psychological problems and confusion. He has had symptoms for the past 2 to 3 years of electrical buzzing in both ears and lightheadedness and this has gotten worse at times. In the past week and a half , he has been off work with difficulty focusing that is slowly worsening and initially his reading and thinking was not quite up to snuff, but this has gotten worse, particularly in the past 3 days' time. When I had seen him on the and he was a little bit anxious about the money issues, which he sometimes is, but it is a little bit more than usual in the past 3 or 4 days' time. Since then, he has become much more agitated. He thinks a gas pump is going to blow up. He is very agitated and is having some paranoid thinking that people are out to get him and that all his money is going to be taken away and this is clearly a change for him and he has had no prior history of significant psychiatric disease. He has had no unusual exposures. No blows to his head. He has had some 10-pound weight loss in the past several months to a year. He has recently been tested positive for chronic Lyme's, which Dr. Emanuel does not think that is unlikely to be changed. He has had normal B12, folic acid, sed rate and thyroid recently. PAST MEDICAL HISTORY: He has a past history of hypertension, hyperlipidemia, arthritis, BPH and nephrolithiasis. PAST SURGICAL HISTORY: He has had kidney stone surgery and tonsillectomy. MEDICATIONS: On admission include: 1. Zoloft 50 mg a day. 2. Flomax 0.4 mg daily. 3. Proscar 5 mg daily. 4. He has been on doxycycline [address] Emanuel has stopped now. ALLERGIES: He has no known drug allergies. FAMILY HISTORY: Both parents had dementia and his father had a CVA. SOCIAL HISTORY: He does not smoke or drink. He was a psychiatrist actively practising until 2 weeks ago. REVIEW OF SYSTEMS: Negative in all 14 spheres other than the HPI. PHYSICAL EXAM: Vital Signs: Temperature 97.5, pulse 69, respirations 16, blood pressure 128/64. He is alert and oriented, but has confused thoughts and somewhat agitated. He is very afraid that he is not going to be able to pay his medical bills, although he has apparently excellent insurance according to his . He has some odd thinking, his memory is 3/3 at this point. He speaks in fluent sentences. His affect is slightly odd. Cranial nerves II through XII were intact. Fundi were benign. Motor exam revealed normal tone, strength coordination and gait. Reflexes were 3+ and equal and he had a positive snout. Chest: Clear. Cardiovascular: Regular rate and rhythm. Abdomen is soft with positive bowel sounds. DIAGNOSTIC STUDIES/LAB DATA: He had an MRI scan which I reviewed showed some atrophy. His EEG showed no epileptiform potentials, triphasic waves or abnormal discharges. His labs included a normal CBC, INR of 1.05. CMP was normal other than his sodium initially was 32, now 133. He has normal TSH, B12. CRP was less than 1. Syphilis negative. UA negative. IMPRESSION AND PLAN: I discussed with his hospitalist as well as his that he has a several week history of rapidly progressive psychological disturbance in the absence of any significant psychiatric symptoms before other than some mild anxiety, for which he has never needed treatment. He has also had some confusion with this, although he is still relatively functioning. This is a subacute encephalopathy and I discussed with the and the hospitalist that this could be secondary to an autoimmune encephalopathy or paraneoplastic encephalopathy and I have recommend serum and CSF be sent for that and that the hospitalist do whatever neoplastic workup they feel appropriate, especially given the weight loss. Cryptococcal antigen is also going to be sent off as well as protein looking for Harry-Creutzfeldt. I think this is unlikely to be Harry-Creutzfeldt. There is no myoclonic jerks. The EEG is unremarkable. Psychiatry has been contacted as well and their opinion would be appreciated in this challenging patient. Cryptococcal studies and extra fluid will be saved on the CSF as well and autoimmune panel will be done as well. [id number]/[facility] #: [id number] [facility]
--- NOTE | 2017-06-25 21:42 | EEG ---
ELECTROENCEPHALOGRAPHY: DATE OF STUDY: 06/25/17 - ROOM #415 PATIENT OF: Dr. Meza. CLINICAL PROBLEM: This is a 71-year-old man being evaluated for altered mental status and delusions. MEDICATIONS: Include: 1. Finasteride. 2. Sertraline. 3. Zofran. REPORT: With the patient awake, background cerebral activity consists of moderate amplitude posterior dominant 11 to 12 Hz rhythm. No epileptiform potential, focal abnormalities or major asymmetries of background are noted. The patient never falls asleep. CLINICAL IMPRESSION: This awake EEG is within normal limits. [id number]/[facility] #: [id number] [facility]
[2017-06-26] MEDS: QUEtiapine TAB* 25 MG PO SCH ×2 (00:23→21:00)
[2017-06-26] MEDS: Heparin VIAL(*) 5000 UNITS/ML VIAL (FIVE THOUSAND) SUBCUT SCH ×4 (05:35→21:02)
--- NOTE | 2017-06-26 08:05 | ED ---
Augustus Rosenthal Angela, scribed for Tad Vieira MD on 06/24/17 at 1414 . GI/ HPI - HPI Summary HPI Summary: This pt is a 71 y/o male presenting to [facility] c/o difficulty voiding for the past 2-3 days. reports the pt was low in energy on May 29. 8 days ago, notes the pt had dizziness and trouble concentrating. In the last 3 days, states pt has had increased paranoid thinking. Dr. Adame called to report that the pt has suprapubic pain, fever, and chills. Dr. Adame believes pt has prostatitis. reports the pt is nervous is nature and has OCD. Pt is on 2 prostate medications. - History of Current Complaint Chief Complaint: EDUrogenitalProblems Time Seen by Provider: 06/24/17 13:55 Stated Complaint: ABD PAIN Hx Obtained From: Patient, Family/Vapor Coater - , Other: - Dr. Adame Onset/Duration: Started Days Ago, Still Present Timing: Lasting Days Current Severity: Severe Pain Intensity: 9 Location of Pain: Suprapubic Associated Signs and Symptoms: Positive: Dizziness, Fever, Chills, Other: - POS : suprapubic pain, trouble concentrating, increased paranoid thinking. - Allergy/Home Medications Allergies/Adverse Reactions: Allergies Allergy/AdvReac Type Severity Reaction Status Date / Time No Known Allergies Allergy Verified 05/30/17 11:35 Home Medications: Home Medications DOXYcycline CAP(*) [DOXYcycline 100MG CAP(*)] 100 mg PO BID 06/24/17 [History Confirmed 06/24/17] Finasteride TAB* [Proscar TAB*] 5 mg PO DAILY 06/24/17 [History Confirmed ] Sertraline* [Zoloft*] 50 mg PO DAILY 06/24/17 [History Confirmed 06/24/17] Tamsulosin CAP* [Flomax CAP*] 0.4 mg PO DAILY 06/24/17 [History Confirmed ] PMH/Surg Hx/FS Hx/Imm Hx Endocrine/Hematology History: Denies: Hx Diabetes Cardiovascular History: Reports: Hx Hypertension Respiratory History: Reports: Hx Sleep Apnea History: Reports: Hx Kidney Stones Denies: Hx Renal Disease Sensory History: Denies: Hx Deafness Infectious Disease History: No Infectious Disease History: Denies: Traveled Outside the [place] in Last 30 Days - Family History Known Family History: Positive: Hypertension, Diabetes Negative: Cardiac Disease, Blood Disorder - no blood clots - Social History Alcohol Use: None Substance Use Type: Reports: None Smoking Status (MU): Never Smoked Tobacco Review of Systems Positive: Fever, Chills Positive: Abdominal Pain - suprapubic pain Genitourinary: Other - difficulty voiding Neurological: Other - POS: dizziness, trouble concentrating Psychological: Other - POS: paranoid thinking, confused All Other Systems Reviewed And Are Negative: Yes Physical Exam - Summary Physical Exam Summary: VITAL SIGNS: Reviewed. GENERAL: Patient is a well-developed and nourished male who is lying comfortable in the stretcher. Patient is not in any acute respiratory distress. HEAD AND FACE: No signs of trauma. No ecchymosis, hematomas or skull depressions. No sinus tenderness. EYES: PERRLA, EOMI x 2, No injected conjunctiva, no nystagmus. EARS: Hearing grossly intact. Ear canals and tympanic membranes are within normal limits. MOUTH: Oropharynx within normal limits. NECK: Supple, trachea is midline, no adenopathy, no JVD, no carotid bruit, no c- spine tenderness, neck with full ROM. CHEST: Symmetric, no tenderness at palpation LUNGS: Clear to auscultation bilaterally. No wheezing or crackles. CVS: Regular rate and rhythm, S1 and S2 present, no murmurs or gallops appreciated. ABDOMEN: Soft, non-tender. No signs of distention. No rebound no guarding, and no masses palpated. Bowel sounds are normal. EXTREMITIES: FROM in all major joints, no edema, no cyanosis or clubbing. NEURO: Alert but seems a little disoriented. Pt is a little confused. Not agitated. No acute neurological deficits. Speech is normal and follows commands. SKIN: Dry and warm Triage Information Reviewed: Yes Vital Signs On Initial Exam: Initial Vitals Temp Pulse Resp BP Pulse Ox 98.6 F 76 18 132/80 100 06/24/17 13:03 06/24/17 13:03 06/24/17 13:03 06/24/17 13:03 06/24/17 13:03 Vital Signs Reviewed: Yes Diagnostics - Vital Signs Vital Signs Temp Pulse Resp BP Pulse Ox 06/24/17 13:03 98.6 F 76 18 132/80 100 - Laboratory Lab Results: Lab Results 06/24/17 06/24/17 06/24/17 Range/Units 13:17 13:17 13:17 WBC 10.2 (3.5-10.8) 10^3/ul RBC 5.37 (4.0-5.4) 10^6/ul Hgb 16.2 (14.0-18.0) g/dl Hct 47 (42-52) % MCV 87 (80-94) fL MCH 30 (27-31) pg MCHC 35 (31-36) g/dl RDW 14 (10.5-15) % Plt Count 309 (150-450) 10^3/ul MPV 6 L (7.4-10.4) um3 Neut % (Auto) 73.4 (38-83) % Lymph % (Auto) 16.8 L (25-47) % Wayne % (Auto) 8.2 (1-9) % Eos % (Auto) 0.6 (0-6) % Baso % (Auto) 1.0 (0-2) % Absolute Neuts (auto) 7.5 (1.5-7.7) 10^3/ul Absolute Lymphs (auto) 1.7 (1.0-4.8) 10^3/ul Absolute Monos (auto) 0.8 (0-0.8) 10^3/ul Absolute Eos (auto) 0.1 (0-0.6) 10^3/ul Absolute Basos (auto) 0.1 (0-0.2) 10^3/ul Absolute Nucleated RBC 0 10^3/ul Nucleated RBC % 0.1 Sodium 132 L (133-145) mmol/L Potassium 3.9 (3.5-5.0) mmol/L Chloride 100 L (101-111) mmol/L Carbon Dioxide 25 (22-32) mmol/L Anion Gap 7 (2-11) mmol/L BUN 17 (6-24) mg/dL Creatinine 0.93 (0.67-1.17) mg/dL Est GFR ( Amer) 102.4 (>60) Est GFR (Non-Af Amer) 79.6 (>60) BUN/Creatinine Ratio 18.3 (8-20) Glucose 115 H (70-100) mg/dL Lactic Acid 1.4 (0.5-2.0) mmol/L Calcium 9.9 (8.6-10.3) mg/dL Total Bilirubin 0.60 (0.2-1.0) mg/dL AST 20 (13-39) U/L ALT 16 (7-52) U/L Alkaline Phosphatase 58 (34-104) U/L C-Reactive Protein < 1.00 (< 5.00) mg/L Total Protein 7.3 (6.4-8.9) g/dL Albumin 4.5 (3.2-5.2) g/dL Globulin 2.8 (2-4) g/dL Albumin/Globulin Ratio 1.6 (1-3) Result Diagrams: 06/25/17 05:57 06/25/17 05:57 Lab Statement: Any lab studies that have been ordered have been reviewed, and results considered in the medical decision making process. GIGU Course/Dx - Course Course Of Treatment: This pt is a 71 y/o male presenting to [facility] c/o difficulty voiding for the past 2-3 days. reports the pt was low in energy on May 29. 8 days ago, notes the pt had dizziness and trouble concentrating. In the last 3 days, states pt has had increased paranoid thinking. Dr. Adame called to report that the pt has suprapubic pain, fever, and chills. Dr. Adame believes pt has prostatitis. reports the pt is nervous is nature and has OCD. Pt is on 2 prostate medications. Test results without any significant abnormalities except for sodium of 132. Urinalysis shows no UTI. Since the pt was seen earlier by Dr. Adame, from infectious disease, he requested to give the pt IV fluids and start him on Levaquin, since he believes the pt has prostatitis. Dr. Adame also requested for the pt to be admitted to the medical team. He will come and consult with the pt. He advises no imaging at this time. He will decide on these images after he examines the pt. I discussed pts case with Dr. Castillo, hospitalist, who agrees to admit the pt. Pt is hemodynamically stable, alert and oriented x3. - Diagnoses Differential Diagnoses - Male: Sepsis, Urinary Tract Infection Provider Diagnoses: Prostatitis - Physician Notifications Discussed Care Of Patient With: Miya Castillo Time Discussed With Above Provider: 14:18 Instructed by Provider To: Other - I discussed pt care with Dr. Castillo, hospitalist, who has agreed to admit the pt. Discharge - Discharge Plan Condition: Stable Disposition: ADMITTED TO [facility] documentation as recorded by the Augustus slater Angela accurately reflects the service I personally performed and the decisions made by me, Tad Vieira MD.
--- NOTE | 2017-06-26 09:29 | PN ---
Progress Note - Progress Note Date of Service: 06/26/17 SOAP: Subjective: CC: anorexia HPI: 71 year old man with 3-4 weeks anorexia, decreased energy, 10 lb weight loss, worsening nocturia and urinary hesitancy, more recent paranoia; Found to have retained 500 cc urine and leos catheter placed, he wants it out. Objective: Vital Signs Temp 36.6 C 06/26/17 07:40 Pulse 67 06/26/17 07:40 Resp 16 06/26/17 07:40 BP 128/72 06/26/17 07:40 Pulse Ox 98 06/26/17 07:40 Intake & Output 06/25/17 06/26/17 06/26/17 18:59 06:59 18:59 Intake Total 420 900 Output Total 1300 1650 Balance -880 -750 Intake: Oral 420 900 Output: Leos 1300 1650 Other: # Bowel Movements 1 Estimated Stool Amount Medium Gen:Awake, no distress Neuro: flat affect, answers questions, oriented x3 HEENT:PERRL, MMM Heart:RRR no murmur Lungs:CTA BL Abd:+BS NTND soft Skin: no rash Laboratory Results - last 24 hr 06/24/17 06/25/17 06/25/17 18:30 15:35 15:35 Fluid Source Cerebral spinal Fluid Volume 2 Fluid Color Colorless Fluid Appearance Clear Fluid WBC 0 Fluid RBC 1 Fluid Tot Cell Count 3 Fluid Neutrophils Not Reportable Fluid Lymphocytes 67 Fluid Monocytes 33 Fluid Comment CSF Cell Count Tube # 4 CSF Glucose 68 CSF Total Protein 21 Syphilis IgG Antibody Nonreactive Assessment: 1. anorexia and weight loss, paranoid ideation; infectious and metabolic workup negative to this point. 2. urinary retention and BPH Plan: 1.urology evaluation 2. no MRI or EEG findings to suggest CJD, but if neurology recommends further workup for it, CSF to [facility] for 14-3-3 protein
[2017-06-26] MEDS: Tamsulosin CAP* 0.4 MG PO SCH (09:41)
[2017-06-26] MEDS: Finasteride TAB* 5 MG PO SCH (09:41)
[2017-06-26] MEDS: Sertraline* 50 MG TAB PO SCH (09:41)
--- NOTE | 2017-06-26 14:06 | CONSULT ---
Identification - Patient Identification Reason for Psychiatric Consultation: Incapacitating Symptoms -: Patient is a 71 year old, M admitted on 06/24/17. - MHU Identification Employment Status: Employed Hx Psychiatric Hospitalization: No History - Objective HPI: The patient is seen in the company of his . She reports that he remains anxious but somewhat less intensely negative about his circumstances. In conversation with him he comes across with an affect that is somewhat incongruent, broad and smiling as he tells me that he is going bankrupt and will lose his house and car from nonpayment of loans. His is there to deny these distortions and reassure him yet his thinking remains overtly catastrophizing. "I'm getting worse in here. I'm losing muscle mass and I won' t be able to use my penis after they remove the catheter." The patient is adherent with sertraline but declined quetiapine last night, stating "It's just going to make my sleep apnea worse." When asked about going home, he states that he can't be safe at home because we have physically deconditioned him. His , Maryjane, states that she would feel safe taking him home, provided his anxiety was better controlled. The patient is not interested in either major or minor tranquilizers and will only accept low dose melatonin as a sleep aid. They decline voluntary psychiatric admission. Lab Results: Laboratory Tests 06/24/17 06/24/17 06/24/17 18:30 18:30 18:30 WBC RBC Hgb Hct MCV MCH MCHC RDW Plt Count MPV Neut % (Auto) Lymph % (Auto) Chilton % (Auto) Eos % (Auto) Baso % (Auto) Absolute Neuts (auto) Absolute Lymphs (auto) Absolute Monos (auto) Absolute Eos (auto) Absolute Basos (auto) Absolute Nucleated RBC Nucleated RBC % INR (Anticoag Therapy) Sodium Potassium Chloride Carbon Dioxide Anion Gap BUN Creatinine Est GFR ( Amer) Est GFR (Non-Af Amer) BUN/Creatinine Ratio Glucose Calcium Ammonia 42 Vitamin B12 358 TSH 2.82 Fluid Source Fluid Volume Fluid Color Fluid Appearance Fluid WBC Fluid RBC Fluid Tot Cell Count Fluid Neutrophils Fluid Lymphocytes Fluid Monocytes Fluid Comment CSF Cell Count Tube # CSF Glucose CSF Total Protein CSF Cryptococcus Ag Syphilis IgG Antibody Nonreactive Miscellaneous Test 06/25/17 06/25/17 06/25/17 05:57 05:57 05:57 WBC 9.6 RBC 5.19 Hgb 16.1 Hct 45 MCV 87 MCH 31 MCHC 36 RDW 14 Plt Count 290 MPV 7 L Neut % (Auto) 71.3 Lymph % (Auto) 18.1 L Chilton % (Auto) 9.1 H Eos % (Auto) 0.9 Baso % (Auto) 0.6 Absolute Neuts (auto) 6.8 Absolute Lymphs (auto) 1.7 Absolute Monos (auto) 0.9 H Absolute Eos (auto) 0.1 Absolute Basos (auto) 0.1 Absolute Nucleated RBC 0 Nucleated RBC % 0 INR (Anticoag Therapy) 1.05 H Sodium 133 Potassium 4.2 Chloride 102 Carbon Dioxide 23 Anion Gap 8 BUN 14 Creatinine 0.95 Est GFR ( Amer) 99.9 Est GFR (Non-Af Amer) 77.7 BUN/Creatinine Ratio 14.7 Glucose 106 H Calcium 9.5 Ammonia Vitamin B12 TSH Fluid Source Fluid Volume Fluid Color Fluid Appearance Fluid WBC Fluid RBC Fluid Tot Cell Count Fluid Neutrophils Fluid Lymphocytes Fluid Monocytes Fluid Comment CSF Cell Count Tube # CSF Glucose CSF Total Protein CSF Cryptococcus Ag Syphilis IgG Antibody Miscellaneous Test 06/25/17 06/25/17 06/25/17 15:35 15:35 15:35 WBC RBC Hgb Hct MCV MCH MCHC RDW Plt Count MPV Neut % (Auto) Lymph % (Auto) Chilton % (Auto) Eos % (Auto) Baso % (Auto) Absolute Neuts (auto) Absolute Lymphs (auto) Absolute Monos (auto) Absolute Eos (auto) Absolute Basos (auto) Absolute Nucleated RBC Nucleated RBC % INR (Anticoag Therapy) Sodium Potassium Chloride Carbon Dioxide Anion Gap BUN Creatinine Est GFR ( Amer) Est GFR (Non-Af Amer) BUN/Creatinine Ratio Glucose Calcium Ammonia Vitamin B12 TSH Fluid Source Cerebral spinal Fluid Volume 2 Fluid Color Colorless Fluid Appearance Clear Fluid WBC 0 Fluid RBC 1 Fluid Tot Cell Count 3 Fluid Neutrophils Not Reportable Fluid Lymphocytes 67 Fluid Monocytes 33 Fluid Comment CSF Cell Count Tube # 4 CSF Glucose 68 CSF Total Protein 21 CSF Cryptococcus Ag Negative Syphilis IgG Antibody Miscellaneous Test 06/25/17 15:35 WBC RBC Hgb Hct MCV MCH MCHC RDW Plt Count MPV Neut % (Auto) Lymph % (Auto) Chilton % (Auto) Eos % (Auto) Baso % (Auto) Absolute Neuts (auto) Absolute Lymphs (auto) Absolute Monos (auto) Absolute Eos (auto) Absolute Basos (auto) Absolute Nucleated RBC Nucleated RBC % INR (Anticoag Therapy) Sodium Potassium Chloride Carbon Dioxide Anion Gap BUN Creatinine Est GFR ( Amer) Est GFR (Non-Af Amer) BUN/Creatinine Ratio Glucose Calcium Ammonia Vitamin B12 TSH Fluid Source Fluid Volume Fluid Color Fluid Appearance Fluid WBC Fluid RBC Fluid Tot Cell Count Fluid Neutrophils Fluid Lymphocytes Fluid Monocytes Fluid Comment CSF Cell Count Tube # CSF Glucose CSF Total Protein CSF Cryptococcus Ag Syphilis IgG Antibody Miscellaneous Test See comment Exam Appearance: Well Developed/Nourished Hygiene: Normal Grooming: Fairly Well Kept Psychomotor Activities: Normal Exhibits Abnormal Movement: No Attitude and Relatedness: Psychotically Related Eye Contact: Good - Speech Quality: Unpressured Latencies: Normal Quantity: Appropriate Patient's Decription of Mood: "Anxious" Observed Affect: Expansive Affect Consistent with: Dysphoria Patient's Thought Process: Circumstantial Thought Content: Yes Paranoid Ideation, No Passive Wish, No Suicidal Planning, No Homicidal Ideation Experiencing Hallucinations: No, Sensorium is Clear Type of Hallucinations: Visual: No, Auditory: No, Command: No Level of Consciousness: Alert Orientation: Yes Intact, Yes Orientated to Time, Yes Orientated to Place, Yes Orientated to Person Impulse Control: Poor Insight and Judgement: Impaired Impression - Impression Clinical 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 Inpatient DSM-IV Dx: Unspecified Psychotic DO Merits Inpatient Hospitalization: Yes Problem List - MHU Problems Type of Problem: Attitude and Relatedness Status of Problem: Active Plan - Treatment Plan Treatment Plan: The patient is taking sertraline 50mg PO qday but refuses initiation of quetiapine 12.5mg PO qhs. He agrees to a trial of melatonin for sleep. The primary and neurogy consult teams are still working on ruling out medical/ neurological etiology to his symptoms. Psychiatry feels there is a high likelihood of primary psychosis brought on by marital and occupational stress. The patient and his spouse are declining voluntary psychiatric inpatient treatment. Psychiatry will continue to follow daily. Continued Medication Management: Start Medication Medications: Current Medications Acetaminophen (Tylenol Tab*) 650 mg PO Q4H PRN PRN Reason: FEVER/PAIN Last Admin: 06/25/17 09:58 Dose: 650 mg Finasteride (Proscar Tab*) 5 mg PO DAILY [facility] Last Admin: 06/26/17 09:41 Dose: 5 mg Heparin Sodium (Porcine) (Heparin Vial(*)) 5,000 units SUBCUT Q8HR [facility] Last Admin: 06/26/17 05:35 Dose: Not Given Ondansetron HCl (Zofran Inj*) 4 mg IV Q6H PRN PRN Reason: NAUSEA Polyethylene Glycol/Electrolytes (Miralax*) 17 gm PO DAILY PRN PRN Reason: CONSTIPATION Last Admin: 06/25/17 16:44 Dose: 17 gm Quetiapine Fumarate (Seroquel Tab*) 25 mg PO BEDTIME [facility] Last Admin: 06/26/17 00:23 Dose: Not Given Sertraline HCl (Zoloft*) 50 mg PO DAILY [facility] Last Admin: 06/26/17 09:41 Dose: 50 mg Tamsulosin HCl (Flomax Cap*) 0.4 mg PO DAILY [facility] Last Admin: 06/26/17 09:41 Dose: 0.4 mg - Discharge Plan Discharge Plan: Inpatient Hospitalization
[2017-06-26] MEDS ORDERED: Iohexol 300* (CONTRAST) 10 ML SDV IV ONE (14:16)
--- NOTE | 2017-06-26 14:51 | RAD ---
Indication: Paraneoplastic syndrome. CT of the chest, abdomen and pelvis was performed after oral and IV contrast administration. Coronal and sagittal reconstructed images were obtained. Comparison is made with prior exams dated 06/13/2017 and 07/08/2010. Inferior thyroid lobes are unremarkable. No mediastinal or hilar adenopathy is noted. The heart is of normal size without evidence of pericardial effusion. The trachea and major bronchi appear patent. The lung fraga demonstrate no evidence of pleural fluid, nodules or masses. The axilla demonstrates no evidence of abnormal masses. CT of the abdomen and pelvis demonstrates the liver to be normal in size. No focal lesions or intrahepatic duct dilatation is noted. Common duct is not dilated. Gallbladder demonstrates no calcified gallstones. Pancreas demonstrates no mass or pancreatic duct dilatation. Spleen is normal in size. No adrenal masses are noted. The kidneys demonstrate symmetric nephrograms without focal lesions. Atherosclerotic aorta is noted. No dilated loops of bowel are noted. CT of the pelvis demonstrates atherosclerotic aorta without aneurysmal dilatation. No dilated loops of bowel are noted. The urinary bladder is unremarkable. The prostate is enlarged. Phillips catheter is in place. The colon is filled with stool. The bony structures are grossly unremarkable. Degenerative disc disease at L5-S1 is noted. No definite mesenteric masses are identified. IMPRESSION: No definite masses or fluid collections are identified.
[2017-06-26 15:31] LABS: CSF VDRL Negative (Negative)
--- NOTE | 2017-06-26 16:06 | PN ---
Subjective Date of Service: 06/26/17 Interval History: I had a long conversation with Mr. Waldron today and he perseverates on his debilitation since being in the hospital, his inability to pay for medical expenses and his personal affairs, and the leos catheter impairing his concentration. Family History: Unchanged from Admission Social History: Unchanged from Admission Past Medical History: Unchanged from Admission Objective Active Medications: Acetaminophen (Tylenol Tab*) 650 mg PO Q4H PRN PRN Reason: FEVER/PAIN Last Admin: 06/25/17 09:58 Dose: 650 mg Finasteride (Proscar Tab*) 5 mg PO DAILY [facility] Last Admin: 06/26/17 09:41 Dose: 5 mg Heparin Sodium (Porcine) (Heparin Vial(*)) 5,000 units SUBCUT Q8HR [facility] Last Admin: 06/26/17 15:05 Dose: Not Given Melatonin (Melatonin (Nf)) 3 mg PO BEDTIME [facility] Ondansetron HCl (Zofran Inj*) 4 mg IV Q6H PRN PRN Reason: NAUSEA Polyethylene Glycol/Electrolytes (Miralax*) 17 gm PO DAILY PRN PRN Reason: CONSTIPATION Last Admin: 06/25/17 16:44 Dose: 17 gm Quetiapine Fumarate (Seroquel Tab*) 25 mg PO BEDTIME [facility] Last Admin: 06/26/17 00:23 Dose: Not Given Sertraline HCl (Zoloft*) 50 mg PO DAILY [facility] Last Admin: 06/26/17 09:41 Dose: 50 mg Tamsulosin HCl (Flomax Cap*) 0.4 mg PO DAILY [facility] Last Admin: 06/26/17 09:41 Dose: 0.4 mg Vital Signs - 8 hr 06/26/17 11:12 O2 Sat by Pulse 98 Oximetry Oxygen Devices in Use Now: None Appearance: well kept, anxious Eyes: No Scleral Icterus Ears/Nose/Mouth/Throat: NL Teeth, Lips, Gums Neck: NL Appearance and Movements; NL JVP Respiratory: Symmetrical Chest Expansion and Respiratory Effort, Clear to Auscultation Cardiovascular: NL Sounds; No Murmurs; No JVD, RRR Abdominal: NL Sounds; No Tenderness; No Distention Lymphatic: No Cervical Adenopathy Extremities: No Edema Skin: No Rash or Ulcers Neurological: Alert and Oriented x 3, - - distorted thinking, paranoid Result Diagrams: 06/25/17 05:57 06/25/17 05:57 Additional Lab and Data: Lab Results 06/24/17 06/24/17 06/24/17 Range/Units 13:17 13:17 13:17 WBC 10.2 (3.5-10.8) 10^3/ul RBC 5.37 (4.0-5.4) 10^6/ul Hgb 16.2 (14.0-18.0) g/dl Hct 47 (42-52) % MCV 87 (80-94) fL MCH 30 (27-31) pg MCHC 35 (31-36) g/dl RDW 14 (10.5-15) % Plt Count 309 (150-450) 10^3/ul MPV 6 L (7.4-10.4) um3 Neut % (Auto) 73.4 (38-83) % Lymph % (Auto) 16.8 L (25-47) % [place] % (Auto) 8.2 (1-9) % Eos % (Auto) 0.6 (0-6) % Baso % (Auto) 1.0 (0-2) % Absolute Neuts (auto) 7.5 (1.5-7.7) 10^3/ul Absolute Lymphs (auto) 1.7 (1.0-4.8) 10^3/ul Absolute Monos (auto) 0.8 (0-0.8) 10^3/ul Absolute Eos (auto) 0.1 (0-0.6) 10^3/ul Absolute Basos (auto) 0.1 (0-0.2) 10^3/ul Absolute Nucleated RBC 0 10^3/ul Nucleated RBC % 0.1 Sodium 132 L (133-145) mmol/L Potassium 3.9 (3.5-5.0) mmol/L Chloride 100 L (101-111) mmol/L Carbon Dioxide 25 (22-32) mmol/L Anion Gap 7 (2-11) mmol/L BUN 17 (6-24) mg/dL Creatinine 0.93 (0.67-1.17) mg/dL Est GFR ( Amer) 102.4 (>60) Est GFR (Non-Af Amer) 79.6 (>60) BUN/Creatinine Ratio 18.3 (8-20) Glucose 115 H (70-100) mg/dL Lactic Acid 1.4 (0.5-2.0) mmol/L Calcium 9.9 (8.6-10.3) mg/dL Total Bilirubin 0.60 (0.2-1.0) mg/dL AST 20 (13-39) U/L ALT 16 (7-52) U/L Alkaline Phosphatase 58 (34-104) U/L C-Reactive Protein < 1.00 (< 5.00) mg/L Total Protein 7.3 (6.4-8.9) g/dL Albumin 4.5 (3.2-5.2) g/dL Globulin 2.8 (2-4) g/dL Albumin/Globulin Ratio 1.6 (1-3) Microbiology and Other Data: Microbiology 06/25/17 15:35 CSF Gram Stain (Tube 3) - Final Cerebral Spinal Fluid CSF Culture - Preliminary No Growth Day 1 Assess/Plan/Problems-Billing Assessment: - Patient Problems (1) Encephalopathy acute Current Visit: Yes Status: Acute Code(s): G93.40 - ENCEPHALOPATHY, UNSPECIFIED SNOMED Code(s): 6186382 Comment: with psychotic features. 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 CSF studies are pending, but have been sent out so likely will take one week to return. Dr. Lopez suggested voluntary admission to a psychiatric unit, which Dr. Waldron and his decline. I again discussed this with Dr. Waldron, and he declines, but because he does not believe he can pay for it. He also declines going home, and short term rehab. He also declined seroquel. No metabolic or infectious etiologies contributing. (2) Acute urinary retention Current Visit: Yes Status: Acute Code(s): R33.8 - OTHER RETENTION OF URINE SNOMED Code(s): 865953791 Comment: relieved with leos catheter. He does have history of BPH, but is already on flomax and finasteride. We could increase the flomax, but he also declines this. He is not on any anticholinergic medications that could contribute. Continue with leos until tomorrow (3 days), and we will try a voiding trial in the morning.
[2017-06-26] MEDS ORDERED: CMCS:Melatonin (NF) 3 MG TAB PO SCH (21:00)
--- NOTE | 2017-06-27 04:24 | PN ---
NEUROLOGIC FOLLOWUP NOTE: DATE OF FOLLOWUP: 06/26/17 HISTORY: August is still continued to be worried about finances and goes off on tangents. I spoke to the Hospitalist earlier today, who noted that even though the had said he just had some mild anxiety in the past, the psychiatrist found that from his boss that he will miss prolonged periods of time from time to time due to mental health issues. He has no new complaints. MEDICATIONS: Include: 1. Proscar. 2. Melatonin. 3. Zofran p.r.n. 4. MiraLAX 17 g p.r.n. constipation. 5. Seroquel 25 mg at bedtime. 6. Zoloft 50 mg a day. 7. Flomax 0.4 daily. PHYSICAL EXAMINATION: On exam, temperature 97.9, pulse 67, respirations 16, blood pressure 128/72. He remains alert, but quite anxious. Cranial nerves II through XII were intact. Motor exam revealed normal tone and strength. He was concerned about his gait and used a walker but he did not seem to need it. Apparently, he was walking in the halls earlier today with his 1wife. Chest: Clear. Cardiovascular: Regular rate and rhythm. Abdomen: Soft with positive bowel sounds. His CSF had normal protein cell count and had negative VDRL, negative cryptococcal studies and Lyme titers were pending. He has had neuron specific enolase of 15, which is in indeterminate range. The autoimmune panel was asked on both CSF and the serum, but I did not see that it has actually been done. I will double check with her. I discussed with her that once these tests have been sent, it will take perhaps 5 to 7 days to come back and not doing any further neurological workup indeed the fact that he has had possibly similar episodes in the past making much more likely that this is just psychiatric disease rather than having a neurological basis or organic basis for his symptomatology. However, I recommended given the overall concerns, it would make sense if he goes to a behavioral unit. He should have a neurologist available depending on how his results develop and also how he does clinically. Going to the psychiatric floor here would be appropriate placement but apparently he does not want to do this because of people knowing him here. Thank you for sharing his case. [id number]/[facility] #: [id number] MAR
[2017-06-27] MEDS: Heparin VIAL(*) 5000 UNITS/ML VIAL (FIVE THOUSAND) SUBCUT SCH ×2 (05:57→13:01)
[2017-06-27 07:06] LABS: ABS Basophils 0.1 10^3/ul (0-0.2); ABS Eosinophils 0.2 10^3/ul (0-0.6); ABS Lymphocytes 1.3 10^3/ul (1.0-4.8); ABS Monocytes 0.7 10^3/ul (0-0.8); ABS Neutrophils 5.4 10^3/ul (1.5-7.7); ABS Nucleated RBC 0 10^3/ul; Eosinophil % 2.6 % (0-6); Hematocrit 41 % (42-52); Hemoglobin 14.8 g/dl (14.0-18.0); Lymphocyte % 17.2 % (25-47); Mean Corpuscular HGB Conc 36 g/dl (31-36); Mean Corpuscular Hemoglobin 31 pg (27-31); Mean Corpuscular Volume 87 fL (80-94); Mean Platelet Volume 6 um3 (7.4-10.4); Nucleated Red Blood Cells % 0; Platelet Count 246 10^3/ul (150-450); Red Blood Count 4.75 10^6/ul (4.0-5.4); Red Cell Distribution Width 14 % (10.5-15); White Blood Count 7.7 10^3/ul (3.5-10.8)
[2017-06-27 07:17] LABS: EGFR Non-African American 74.1 (>60)
[2017-06-27] MEDS: Tamsulosin CAP* 0.4 MG PO SCH (09:00)
[2017-06-27] MEDS: Finasteride TAB* 5 MG PO SCH (09:00)
[2017-06-27] MEDS: Sertraline* 50 MG TAB PO SCH (09:00)
--- NOTE | 2017-06-27 13:29 | PN ---
Subjective - Subjective Date of Service: 06/27/17 Service Type: 25815 Hosp care 25 min moderate complexity Subjective: August appears improved today. Although he continues to present with distorted negative perceptions of his financial and occupational situation, these cognitions seem far less desperate than previously noted. He did accept the dose of quetiapine last night and acknowledges sleeping far better with minimal residual sedation. His Maryjane continues to be supportive. They are declining the offer of an inpatient psychiatric hospitalization, feeling that they will be safe and best served by going home. They ask for an outpatient psychiatric referral. August continues to deny SI or HI. 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 Plan - Plan Treatment Plan: The patient is taking sertraline 50mg PO qday but refuses initiation of quetiapine 12.5mg PO qhs. He agrees to a trial of melatonin for sleep. The primary and neurogy consult teams are still working on ruling out medical/ neurological etiology to his symptoms. Psychiatry feels there is a high likelihood of primary psychosis brought on by marital and occupational stress. The patient and his spouse are declining voluntary psychiatric inpatient treatment. Psychiatry will continue to follow daily. Medications: Current Medications Acetaminophen (Tylenol Tab*) 650 mg PO Q4H PRN PRN Reason: FEVER/PAIN Last Admin: 06/25/17 09:58 Dose: 650 mg Finasteride (Proscar Tab*) 5 mg PO DAILY [facility] Last Admin: 06/27/17 09:00 Dose: 5 mg Heparin Sodium (Porcine) (Heparin Vial(*)) 5,000 units SUBCUT Q8HR [facility] Last Admin: 06/27/17 13:01 Dose: Not Given Melatonin (Melatonin (Nf)) 3 mg PO BEDTIME [facility] Last Admin: 06/26/17 21:00 Dose: 3 mg Ondansetron HCl (Zofran Inj*) 4 mg IV Q6H PRN PRN Reason: NAUSEA Polyethylene Glycol/Electrolytes (Miralax*) 17 gm PO DAILY PRN PRN Reason: CONSTIPATION Last Admin: 06/25/17 16:44 Dose: 17 gm Quetiapine Fumarate (Seroquel Tab*) 25 mg PO BEDTIME [facility] Last Admin: 06/26/17 21:00 Dose: 25 mg Sertraline HCl (Zoloft*) 50 mg PO DAILY [facility] Last Admin: 06/27/17 09:00 Dose: 50 mg Tamsulosin HCl (Flomax Cap*) 0.4 mg PO DAILY [facility] Last Admin: 06/27/17 09:00 Dose: 0.4 mg
--- NOTE | 2017-06-27 13:38 | CONSULT ---
Identification - Patient Identification Reason for Psychiatric Consultation: Incapacitating Symptoms, Patient Distress -: Patient is a 71 year old, M admitted on 06/26/17. - MHU Identification Employment Status: Employed Hx Psychiatric Hospitalization: No History - Objective HPI: August appears improved today. Although he continues to present with distorted negative perceptions of his financial and occupational situation, these cognitions seem far less desperate than previously noted. He did accept the dose of quetiapine last night and acknowledges sleeping far better with minimal residual sedation. His Maryjane continues to be supportive. They are declining the offer of an inpatient psychiatric hospitalization, feeling that they will be safe and best served by going home. They ask for an outpatient psychiatric referral. August continues to deny SI or HI. Lab Results: Laboratory Tests 06/27/17 06/27/17 06:33 06:33 WBC 7.7 RBC 4.75 Hgb 14.8 Hct 41 L MCV 87 MCH 31 MCHC 36 RDW 14 Plt Count 246 MPV 6 L Neut % (Auto) 70.3 Lymph % (Auto) 17.2 L [place] % (Auto) 9.2 H Eos % (Auto) 2.6 Baso % (Auto) 0.7 Absolute Neuts (auto) 5.4 Absolute Lymphs (auto) 1.3 Absolute Monos (auto) 0.7 Absolute Eos (auto) 0.2 Absolute Basos (auto) 0.1 Absolute Nucleated RBC 0 Nucleated RBC % 0 Sodium 130 L Potassium 4.0 Chloride 97 L Carbon Dioxide 25 Anion Gap 8 BUN 13 Creatinine 0.99 Est GFR ( Amer) 95.3 Est GFR (Non-Af Amer) 74.1 BUN/Creatinine Ratio 13.1 Glucose 124 H Calcium 9.1 Magnesium 2.1 Exam Appearance: Well Developed/Nourished Hygiene: Normal Grooming: Well Kept Psychomotor Activities: Normal Exhibits Abnormal Movement: No Attitude and Relatedness: Cooperative Eye Contact: Good - Speech Quality: Unpressured Latencies: Normal Quantity: Appropriate Patient's Decription of Mood: "Anxious" Observed Affect: Fair Affect Consistent with: Dysphoria Patient's Thought Process: Circumstantial Thought Content: Yes Paranoid Ideation, No Passive Wish, No Suicidal Planning, No Homicidal Ideation Experiencing Hallucinations: No, Sensorium is Clear Type of Hallucinations: Visual: No, Auditory: No, Command: No Level of Consciousness: Alert Orientation: Yes Intact, Yes Orientated to Time, Yes Orientated to Place, Yes Orientated to Person Impulse Control: Tenuous Insight and Judgement: Impaired Impression - Impression Clinical 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 , white male with a chronic history of subacute anxiety admitted to the hospitalist service due to recent change of mentation who appears to have psychotic symptoms in the setting of occupational stress. Inpatient DSM-IV Dx: Unpsecified psychotic disorder Merits Inpatient Hospitalization: No Problem List - MHU Problems Type of Problem: Affect Status of Problem: Active Plan - Treatment Plan Treatment Plan: The patient is improving on sertraline 50mg PO qday and quetiapine 25mg PO qhs. He and his are refusing offered voluntary psychiatric hospitalization in favor of going home and receiving outpatient services. He does not meet legal criteria for involuntary care. We will refer him to outpatient follow up at [facility] in [place], [place] with psychiatrist Rivera Elliott, whom I have discussed the case with. Continued Medication Management: Start Medication Medications: Current Medications Acetaminophen (Tylenol Tab*) 650 mg PO Q4H PRN PRN Reason: FEVER/PAIN Last Admin: 06/25/17 09:58 Dose: 650 mg Finasteride (Proscar Tab*) 5 mg PO DAILY [facility] Last Admin: 06/27/17 09:00 Dose: 5 mg Heparin Sodium (Porcine) (Heparin Vial(*)) 5,000 units SUBCUT Q8HR [facility] Last Admin: 06/27/17 13:01 Dose: Not Given Melatonin (Melatonin (Nf)) 3 mg PO BEDTIME [facility] Last Admin: 06/26/17 21:00 Dose: 3 mg Ondansetron HCl (Zofran Inj*) 4 mg IV Q6H PRN PRN Reason: NAUSEA Polyethylene Glycol/Electrolytes (Miralax*) 17 gm PO DAILY PRN PRN Reason: CONSTIPATION Last Admin: 06/25/17 16:44 Dose: 17 gm Quetiapine Fumarate (Seroquel Tab*) 25 mg PO BEDTIME [facility] Last Admin: 06/26/17 21:00 Dose: 25 mg Sertraline HCl (Zoloft*) 50 mg PO DAILY [facility] Last Admin: 06/27/17 09:00 Dose: 50 mg Tamsulosin HCl (Flomax Cap*) 0.4 mg PO DAILY [facility] Last Admin: 01/26/18 09:00 Dose: 0.4 mg - Discharge Plan Discharge Plan: Outpatient Follow Up Outpatient Program: [place], [place]
--- NOTE | 2017-06-28 01:17 | PN ---
NEUROLOGIC FOLLOWUP NOTE: DATE OF FOLLOWUP: DATE OF DICTATION: 06/27/17 PATIENT OF: Dr. Alejo; Dr. Graham. HISTORY: He is feeling better and seems a little bit less anxious today. He would like to go home and is going to go home depending on what his further neurological studies say. The psychiatrist feels he is improving on his sertraline and quetiapine and the patient is refusing voluntary psychiatric hospitalization. He is supposed to going home and receiving outpatient services and that is going to be the game plan and with the diagnosis of subacute anxiety with recent flare including some psychotic features. REVIEW OF SYMPTOMS: Unchanged other than some anxiety. PHYSICAL EXAMINATION: Temperature 98, pulse 63, respiratory rate 16, blood pressure 110/64. He is alert and oriented. Normal speech. He remains anxious. Cranial nerves II through XII intact. Motor exam revealed normal tone. Gait was normal. Chest: Clear. Cardiovascular: Regular rate and rhythm. Abdomen: Soft. Discussed with him that some of his lab tests and the spinal tap and some specialized testing is pending. I will see him in the next couple weeks as an outpatient to review the details. I hope to reach Dr. Alejo to discuss his case with him as well. Thank you for sharing his care. [id number]/[facility] #: [id number] MAR
--- NOTE | 2017-06-30 04:28 | DS ---
CC: Dr. Lopez; Dr. Browning * DISCHARGE SUMMARY: DATE OF ADMISSION: 06/24/17 DATE OF DISCHARGE: 06/27/17 PRIMARY CARE PHYSICIAN: Dr. Alejo. ATTENDING PROVIDER: Dr. Rosa Graham. PRINCIPAL DISCHARGE DIAGNOSES: 1. Psychosis. 2. Acute urinary retention. SECONDARY DISCHARGE DIAGNOSES: 1. Hypertension. 2. Hyperlipidemia. 3. Benign prostatic hypertrophy. 4. Obstructive sleep apnea. PHYSICAL EXAMINATION AT THE TIME OF DISCHARGE: General: Alert, well-appearing man in no acute distress. HEENT: Pupils equal, round, reactive to light with no nystagmus, moist mucosa. Neck: No cervical adenopathy. No JVD. Chest: Regular rate and rhythm. No murmurs. PMI is nondisplaced. Lungs are clear bilaterally. Abdomen: Soft, nontender, nondistended. No CVA tenderness. Extremities: No rashes, edema, or ulcers. Neurologic: Strength 5+ throughout. Coordination intact. Follows complex commands with excellent recall. Psychiatric: He is very anxious and perseverates on the cost of the tests we are running, the medications we are prescribing, and his followup appointments. He expresses concern that his will be unable to manage their affairs and take him to his appointments. He is concerned that he has lost muscle mass while he was in the hospital and is concerned about his return to work. BRIEF HOSPITAL COURSE: This is a 71-year-old man with past medical history of benign prostatic hypertrophy and hypertension, who presents with 2 weeks of bizarre behavior as reported by his that has acutely worsened over the past 2 days. He was then sent to emergency department from Dr. Emanuel's office where he was noted to be tangential and anxious and he was concerned for an infectious versus metabolic versus primary source of this psychosis. Upon admission, he received an infectious and metabolic workup, which was largely negative except for urinary retention. Neurology was consulted as was Psychiatry. Neurology recommended a lumbar puncture to evaluate for secondary causes of psychosis. At the time of discharge, an autoimmune encephalitis panel is still pending as is the Creutzfeldt- Harry protein. However, all of the studies that were sent while he was admitted have returned to be unremarkable. These include CSF protein, glucose, cultures, cell count, CSF, Lyme, VDRL, cryptococcal antigen, and opening pressure. From a psychiatric standpoint, a psychiatric consultation agreed that this is most likely a primary psychosis caused by extreme stress in his job and his home life. Further review of his psychiatric history revealed anxiety at work necessitating yearly vacations for several months. Psychiatry recommended an inpatient psychiatric treatment; however, the patient and his declined. 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 Psychiatry recommended beginning treatment with Seroquel nightly. Initially, Dr. Waldron refused this treatment; however, agreed to it eventually and received better sleep with it and that following morning was somewhat more reasonable. He agrees to continue nightly Seroquel as well as daily Zoloft. He will be followed up outpatient with psychiatrist. I discussed this extensively with his and recommended that he not be alone and his agrees and will be with him until he is more reliable. From a neurologic standpoint, the above CSF studies are pending at the time of discharge and I have asked Dr. Browning to follow up on these. I confirmed with the pathology lab that they have been sent to the [facility] and will return in approximately 7 days. Imaging during this hospitalization included a brain MRI, which showed central and cortical atrophy with no intracranial mass or hemorrhage and an EEG was reported to be unremarkable. Regarding his acute urinary retention, he does have history of BPH for which he follows with [facility]. He was taking Flomax 0.4 mg and Proscar 5 mg daily at the time of admission; however, in the emergency department, he was found to have over 500 cc of urine in his bladder post void. So, a Phillips catheter was placed. It was continued for 3 days and on 06/27/17, it was removed and his postvoid residual was 90 cc. He declined increasing his Flomax dose. I have requested a followup with Dr. Kyle as he prefers to follow up here instead of his [facility]ist. He would like to consider and discuss options including a TURP. DISPOSITION: Dr. Waldron is discharged to home with his on 06/27/17 who agrees to monitor him closely. They have received a referral from Dr. Lopez for a local psychiatrist that his will call and schedule appointment for. I scheduled an appointment for him to follow up with Dr. Browning and requested that Dr. Kyle's office call them with a followup appointment regarding his BPH. DIET: Unrestricted. ACTIVITY: Unrestricted. TIME SPENT: Greater than 60 minutes was spent on this discharge. [id number]/[facility] #: [id number] MAR
[2017-07-01 07:26] VITALS: BP 134/76
== END 2017-06-27 16:10 | disposition home or self-care (01) | DRG 751 ==
LOC: ED 12:46 → MED 14:45 → OBSVTOIN 06-26 15:55
PROVIDERS: ADMIT Internal Medicine; ATTEND Internal Medicine
PROC: 009U3ZX Drainage of Spinal Canal, Percutaneous Approach, Diagnostic (ICD-10-PCS; principal; 2017-06-25 14:52)
DX: F29 Unspecified psychosis not due to a substance or known physiological condition (principal); G93.49 Other encephalopathy; N40.1 Benign prostatic hyperplasia with lower urinary tract symptoms; R33.8 Other retention of urine; I10 Essential (primary) hypertension; E78.5 Hyperlipidemia, unspecified; F41.9 Anxiety disorder, unspecified; G47.33 Obstructive sleep apnea (adult) (pediatric); Z79.899 Other long term (current) drug therapy; Z82.3 Family history of stroke; R63.0 Anorexia; Z68.22 Body mass index [BMI] 22.0-22.9, adult; Z81.8 Family history of other mental and behavioral disorders
CPT/HCPCS: 36415; 62270; 70551; 71260; 74177; 76770; 80048; 80053; 81003; 81015; 82140; 82607; 82945; 83519; 83520; 83605; 83735; 83916; 84157; 84443; 85025; 85610; 86038; 86140; 86255; 86341; 86592; 86618; 87070; 87205; 87798; 87899; 89051; 93005; 95816; 99283; A9270-GY; G0378; J1644; J2250; J3010; Q9967

== ENCOUNTER 2017-07-03 10:17 | Inpatient (IN) | payer OTHER, MEDICARE ==
--- OUTSIDE RECORDS SUMMARY | 2017-07-03 11:44 | XMS REPORT ---
:1945 External Reference #:[id number] Author Organization [employer] [facility] Address [address] [address] Phone [phone] Care Team Providers Name Role Phone Edison Hidalgo MD Primary Care Physician Unavailable Payers Type Date Identification Numbers Payment Provider Subscriber Commercial Policy Number: [id number] [facility] Jonas Johnstonler PayID: [id number] [address] [place] [address] [place] Policy Number: [id number] Medicare Jonas Waldron PayID: [id number] [address] [place] [address] Problems Date Description Provider Status Onset: 07/01/2017 Static encephalopathy Nino Browning MD Active Onset: 07/01/2017 Benign prostatic hypertrophy with outflow Nino Browning MD Active obstruction Onset: 06/19/2017 Anxiety state Nino Browning MD Active Onset: 06/19/2017 Bilateral tinnitus Nino Browning MD Active Onset: 06/19/2017 Dizziness and giddiness Nino Browning MD Active Onset: 06/19/2017 Lyme disease Nino Browning MD Active Social History Type Date Description Comments ETOH Use Occasionally consumes alcohol Smoking Patient has never smoked General Hx Text 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, in [place], no hx pos TST Allergies, Adverse Reactions, Alerts Date Description Reaction Status Severity Comments 06/19/2017 NKDA active Medications Medication Date Status Form Strength Qnty SIG Indications Ordering Provider Tamsulosin HCL Active Capsules 0.4mg 1 qd Unknown 000 Finasteride 0 Active Tablets 5mg 1 qd Unknown 000 Polyethylene 0 Active Powder 3350NF prn Unknown Glycol 3350 000 Zoloft Active Tablets 50mg 1 by Unknown 000 mouth every day Seroquel Active Tablets 25mg take 1 Unknown 000 tablet by mouth at bedtime Levofloxacin Hx Tablets 500mg 21tabs 1 by R35.1 Guzman Moran 018 - mouth Macqueen, every day M.D. 017 Doxycycline Hx Capsules 100mg 1 bid Unknown Hyclate 000 - 018 Medications Administered in Office Medication Date Status Form Strength Qnty SIG Indications Ordering Provider Influenza,Unsp Administered Injection Unknown ecified 018 Vital Signs Date Vital Result Comment 07/01/2017 Height 66.5 inches 5'6.50" Weight 139.00 lb Heart Rate 76 /min BP Systolic Sitting 120 mmHg BP Diastolic Sitting 78 mmHg BMI (Body Mass Index) 22.1 kg/m2 06/24/2017 Height 66.5 inches 5'6.50" Weight 142.25 lb Heart Rate 84 /min BP Systolic Sitting 152 mmHg BP Diastolic Sitting 82 mmHg Respiratory Rate 14 /min Body Temperature 97.0 F BMI (Body Mass Index) 22.6 kg/m2 06/19/2017 Height 66.5 inches 5'6.50" Weight 142.50 lb Heart Rate 76 /min BP Systolic Sitting 120 mmHg BP Diastolic Sitting 78 mmHg BMI (Body Mass Index) 22.7 kg/m2 Results Test Date Test Result H/L Range Note Urinalysis Profile 06/24/2017 Urine Color Straw Urine Appearance Clear Urine Specific [place] 1.009 Low 1.010-1.030 Urine pH 8.0 5-9 Urine Urobilinogen Negative Negative Urine Ketones Negative Negative Urine Protein Negative Negative Urine Leukocytes Negative Negative Urine Blood 1+ Negative Urine Nitrite Negative Negative Urine Bilirubin Negative Negative Urine Glucose Negative Negative Urine White Blood Cell Trace(0-5/hpf) Absent Urine Red Blood Cell Trace(0-2/hpf) Absent Urine Bacteria Absent Absent Urine Culture And 06/24/2017 Urine Culture SEE RESULT BELOW 1 Sensitivities Ua Routine 06/24/2017 Ua Specific [place] 1.020 Ua PH 5 Ua Color yellow Ua Appera clear Ua WBC trace Ua Protein neg Ua Glucose normal Ua Ketones small Ua Bilirubin neg Ua Urobilinogen normal Ua Nitrite negative Ua Occult Blood trace 1 SEE RESULT BELOW Name: JONAS WALDRON : [address]: Guzman Adame MD Acct: [id number] Unit: [id number] AGE: 71 Location: [facility] Re06/24/17 SEX: M Status: REG REF SPEC: [id number] MIKE: 06/24/[address]: Guzman Adame MD REQ: [id number] RECD: 06/24/17 STATUS: COMP _ SOURCE: URINE SPDESC: ORDERED: Urine Culture COMMENTS: [id number] Urine Source: Random Procedure Result Reported Site Urine Culture Final 06/25/17- 1500 ML No Growth (<1,000 CFU/mL) * ML - MAIN LAB (PSC1) . END OF REPORT * ML=Testing performed at Main Lab DEPARTMENT OF PATHOLOGY, [address] [place] [address] Benji Dalal M.D. Director [facility] # [id number] Procedures Date CPT Code Description Status 07/08/2010 22189 Color Flow Doppler/Interp & Reprt Completed 07/08/2010 47430 Pulse Wave/Continuous-Interp.RPT Completed 07/08/2010 01687 ECHO Transthorasic Realtime 2D W Doppler & Color Completed Flow Hosp 07/08/2010 02164 Treadmill Interp/Report Only Completed 07/08/2010 50331 Treadmill Interp/Report Only Completed 07/08/2010 69308 Stress Test Supervsn W/Out I/R Completed 07/08/2010 09521 Stress Test Supervsn W/Out I/R Completed 07/08/2010 40628 EKG, Interpretation Only Completed 07/07/2010 17539 EKG, Interpretation Only Completed 07/06/2010 70967 EKG, Interpretation Only Completed Encounters Type Date Location Provider CPT E/M Dx Office Visit 06/19/2017 [facility] [address] A69.20 11:15a R42 H93.13 F41.9 Office Visit 07/08/2010 1:45p [facility] Lam Bonds M.D. 05976 427.0 794.31 785.2 Office Visit 07/07/2010 2:18p [facility] Lam Bonds M.D. 45286 427.0 427.89 401.1 794.31 Plan of Care Future Appointment(s):09/01/2017 9:45 am - Nino Browning MD at [facility] Gmyzei8107/03/2017 2:40 pm - Guzman Adame M.D. at [facility] Mnzczjrh70/30/2018 - Nino Browning MDF41.9 Anxiety disorder, unspecifiedReferral:Vero Arshad MD, BgwxfsvhlsZ23.1 Benign prostatic hyperplasia with lower urinary tract sympReferral:Dalton Kyle MD, CkimfahN77.40 Encephalopathy, unspecifiedFollow up:8 WEEKS
--- OUTSIDE RECORDS SUMMARY | 2017-07-03 11:44 | XMS REPORT ---
:1945 External Reference #:[id number] Author Organization [employer] [facility] Address [address] [address] Phone [phone] Care Team Providers Name Role Phone Edison Hidalgo MD Primary Care Physician Unavailable Payers Type Date Identification Numbers Payment Provider Subscriber Commercial Policy Number: [id number] [facility] August Whitley Chivo PayID: [id number] [address] [place] [address] [employer] Part B Policy Number: [id number] Medicare Sameer Chivo PayID: [id number] [address] [place] [address] [employer] Part B Policy Number: [id number] [facility] August Whitley Chivo PayID: [id number] [address] [place] [address] Problems Date Description Provider Status Onset: 06/19/2017 Anxiety state Nino Browning MD Active Onset: 06/19/2017 Bilateral tinnitus Nino Browning MD Active Onset: 06/19/2017 Dizziness and giddiness Nino Browning MD Active Onset: 06/19/2017 Lyme disease Nino Browning MD Active Social History Type Date Description Comments ETOH Use Occasionally consumes alcohol Smoking Patient has never smoked 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 018 mouth [place], every M.D. day Tamsulosin HCL Active Capsules 0.4mg 1 qd Unknown 000 Finasteride Active Tablets 5mg 1 qd Unknown 000 Polyethylene Active Powder 3350NF prn Unknown Glycol 3350 000 Doxycycline Hx Capsules 100mg 1 bid Unknown Hyclate 000 - 018 Medications Administered in Office Medication Date Status Form Strength Qnty SIG Indications Ordering Provider Influenza,Unsp Administered Injection Unknown ecified 018 Vital Signs Date Vital Result Comment 06/24/2017 Height 66.5 inches 5'6.50" Weight 142.25 [...] Color Straw Urine Appearance Clear Urine Specific [place] 1.009 Low 1.010-1.030 Urine pH 8.0 5-9 Urine Urobilinogen Negative Negative Urine Ketones Negative Negative Urine Protein Negative Negative Urine Leukocytes Negative Negative Urine Blood 1+ Negative Urine Nitrite Negative Negative Urine Bilirubin Negative Negative Urine Glucose Negative Negative Urine White Blood Cell Trace(0-5/hpf) Absent Urine Red Blood Cell Trace(0-2/hpf) Absent Urine Bacteria Absent Absent Ua Routine 06/24/2017 Ua Specific [place] 1.020 Ua PH 5 Ua Color yellow Ua Appera clear Ua WBC trace Ua Protein neg Ua Glucose normal Ua Ketones small Ua Bilirubin neg Ua Urobilinogen normal Ua Nitrite negative Ua Occult Blood trace Procedures Date CPT Code Description Status 07/08/2010 90229 Color Flow Doppler/Interp & Reprt Completed 07/08/2010 64484 Pulse Wave/Continuous-Interp.RPT Completed 07/08/2010 35350 ECHO Transthorasic Realtime 2D W Doppler & Color Completed Flow Hosp 07/08/2010 58327 Treadmill Interp/Report Only Completed 07/08/2010 67334 Treadmill Interp/Report Only Completed 07/08/2010 72962 Stress Test Supervsn W/Out I/R Completed 07/08/2010 44895 Stress Test Supervsn W/Out I/R Completed 07/08/2010 64990 EKG, Interpretation Only Completed 07/07/2010 07498 EKG, Interpretation Only Completed 07/06/2010 64593 EKG, Interpretation Only Completed Encounters Type Date Location Provider CPT E/M Dx Office Visit 07/08/2010 1:45p [facility] Lam Bonds, 02279 427.0 M.DLindy 794.31 785.2 Office Visit 07/07/2010 2:18p [facility] Lam Bonds M.D. 36836 427.0 427.89 401.1 794.31 Plan of Care Future Appointment(s):07/03/2017 2:40 pm - Guzman Adame M.D. at [facility] Mncllaxt73/23/2018 - Guzman Adame M.D.R63.4 Abnormal weight lossN20.0 Calculus of fytwugU17.1 NocturiaNew Medication: Levofloxacin 500 mgComments:Urinary frequency, worsening nocturia, and SP tenderness, I think his symptoms are due to UTI and acute prostatitis. UA is mildly positive, will send for culture. I am concerned that the results willbe a false negative as he has been on doxycycline which could sterilize the urine but is unlikely topenetrate the prostate. Alternatively he could have stone disease causing his stone disease, particularly if they are into the ureter or bladder. He does not have Lyme infection and will stop doxycycline. Will start levaquin while waiting for culture. 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 He has mild paranoia today and hallucinations at night; he is easliy redirectable by his . I asked her to take him to the ER for medical admission, he is hemodynamically stable and his prefers to wait for the results of the ultrasound and not have him in the hospital. I explained that he may become unsafe with worsening delerium and that there is risk of sepsis, she understands but prefers to keep him home if possible, she agrees to take him if any worsening symptoms.
[2017-07-03 12:46] LABS: Urine Appearance Clear; Urine Blood Negative (Negative); Urine Color Yellow; Urine Ketones 2+ (Negative); Urine Protein Negative (Negative); Urine Specific Gravity 1.013 (1.010-1.030); Urine Urobilinogen Negative (Negative)
[2017-07-03 13:19] LABS: ABS Basophils 0 10^3/ul (0-0.2); ABS Eosinophils 0 10^3/ul (0-0.6); ABS Monocytes 0.5 10^3/ul (0-0.8); ABS Nucleated RBC 0 10^3/ul; Eosinophil % 0.3 % (0-6); Hematocrit 43 % (42-52); Hemoglobin 15.5 g/dl (14.0-18.0); Mean Corpuscular HGB Conc 36 g/dl (31-36); Mean Corpuscular Hemoglobin 31 pg (27-31); Mean Corpuscular Volume 87 fL (80-94); Mean Platelet Volume 6 um3 (7.4-10.4); Nucleated Red Blood Cells % 0; Platelet Count 263 10^3/ul (150-450); Red Blood Count 4.98 10^6/ul (4.0-5.4); Red Cell Distribution Width 14 % (10.5-15); White Blood Count 6.5 10^3/ul (3.5-10.8)
--- NOTE | 2017-07-04 12:34 | ED ---
Sebastian Rosenthal Jennifer, scribed for Radhames Alcaraz MD on 07/03/17 at 1401 . Psychiatric Complaint - HPI Summary HPI Summary: The patient is a 71 year old male who presents with psychological issues, such as refusing to eat or drink, that began a few days ago. The patient claims that his bladder and bowels are not working, but he has been urinating fine and bowel movement is normal. He saw a urologist yesterday who agreed that the patient go off Finasteride. The patients also added that he is anxious and normally displays obsessive tendencies towards financial matters, but it seemed to switch to his urination and bowel functions recently. 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 - History Of Current Complaint Chief Complaint: EDGeneral Time Seen by Provider: 07/03/17 11:49 Hx Obtained From: Patient, Family/Life Skills Worker - Onset/Duration: Still Present, Worse Since Timing: Constant Severity Initially: Mild Severity Currently: Mild Character: Anxious Associated Signs And Symptoms: Positive: Appetite Change - Refuses to eat or drink Has Suicidal: Denies: Thoughts - Allergies/Home Medications Allergies/Adverse Reactions: Allergies Allergy/AdvReac Type Severity Reaction Status Date / Time No Known Allergies Allergy Verified 07/03/17 12:31 Home Medications: Home Medications DOXYcycline CAP(*) [DOXYcycline 100MG CAP(*)] 100 mg PO BID 07/03/17 [History Confirmed 07/03/17] PMH/Surg Hx/FS Hx/Imm Hx Endocrine/Hematology History: Denies: Hx Diabetes Cardiovascular History: Reports: Hx Hypertension Denies: Hx Pacemaker/ICD Respiratory History: Reports: Hx Sleep Apnea History: Reports: Hx Kidney Stones Denies: Hx Renal Disease Sensory History: Reports: Hx Contacts or Glasses Denies: Hx Deafness, Hx Hearing Aid Opthamlomology History: Reports: Hx Contacts or Glasses Psychiatric History: Denies: Hx Panic Disorder - Surgical History Surgery Procedure, Year, and Place: galbladder Infectious Disease History: No Infectious Disease History: Denies: Traveled Outside the in Last 30 Days - Family History Known Family History: Positive: Hypertension, Diabetes Negative: Cardiac Disease, Blood Disorder - no blood clots - Social History Alcohol Use: None Substance Use Type: Reports: None Smoking Status (MU): Never Smoked Tobacco Review of Systems Negative: Fever Positive: Anxious All Other Systems Reviewed And Are Negative: Yes Physical Exam - Summary Physical Exam Summary: Appearance: The patient is well-nourished in no acute distress and in no acute pain. Skin: The skin is warm and dry and skin color reflects adequate perfusion. HEENT: ~The head is normocephalic and atraumatic. The pupils are equal and reactive. The conjunctivae are clear and without drainage. ~Nares are patent and without drainage. ~Mouth reveals moist mucous membranes and the throat is without erythema and exudate. ~The external ears are intact. The ear canals are patent and without drainage. The tympanic membranes are intact. Neck: the neck is supple with full range of motion and non-tender. There are no carotid bruits. ~There is no neck vein distension. Respiratory: Chest is non-tender. ~Lungs are clear to auscultation and breath sounds are symmetrical and equal. Cardiovascular: Heart is regular rate and rhythm. ~There is no murmur or rub auscultated. ~~There is no peripheral edema and pulses are symmetrical and equal. Abdomen: The abdomen is soft and non-tender. ~There are normal bowel sounds heard in all four quadrants and there is no organomegaly palpated. Musculoskeletal: There is no back tenderness noted. ~Extremities are non-tender with full range of motion. ~There is good capillary refill. ~There is no peripheral edema or calf tenderness elicited. Neurological: Patient is alert and oriented to person, place and time. ~The patient has symmetrical motor strength in all four extremities. ~Cranial nerves are grossly intact. Deep tendon reflexes are symmetrical and equal in all four extremities. Psychiatric: The patient has an appropriate affect and does exhibit anxiety. Triage Information Reviewed: Yes Vital Signs On Initial Exam: Initial Vitals Temp Pulse Resp BP Pulse Ox 97.7 F 77 16 134/75 98 07/03/17 10:24 07/03/17 10:24 07/03/17 10:24 07/03/17 10:24 07/03/17 10:24 Vital Signs Reviewed: Yes Diagnostics - Vital Signs Vital Signs Temp Pulse Resp BP Pulse Ox 07/03/17 10:24 97.7 F 77 16 134/75 98 - Laboratory Lab Results: Lab Results 07/03/17 07/03/17 07/03/17 Range/Units 12:35 12:35 12:50 WBC (3.5-10.8) 10^3/ul RBC (4.0-5.4) 10^6/ul Hgb (14.0-18.0) g/dl Hct (42-52) % MCV (80-94) fL MCH (27-31) pg MCHC (31-36) g/dl RDW (10.5-15) % Plt Count (150-450) 10^3/ul MPV (7.4-10.4) um3 Neut % (Auto) (38-83) % Lymph % (Auto) (25-47) % Grant % (Auto) (1-9) % Eos % (Auto) (0-6) % Baso % (Auto) (0-2) % Absolute Neuts (auto) (1.5-7.7) 10^3/ul Absolute Lymphs (auto) (1.0-4.8) 10^3/ul Absolute Monos (auto) (0-0.8) 10^3/ul Absolute Eos (auto) (0-0.6) 10^3/ul Absolute Basos (auto) (0-0.2) 10^3/ul Absolute Nucleated RBC 10^3/ul Nucleated RBC % Sodium 132 L (133-145) mmol/L Potassium 4.1 (3.5-5.0) mmol/L Chloride 100 L (101-111) mmol/L Carbon Dioxide 21 L (22-32) mmol/L Anion Gap 11 (2-11) mmol/L BUN 13 (6-24) mg/dL Creatinine 0.98 (0.67-1.17) mg/dL Est GFR ( Amer) 96.4 (>60) Est GFR (Non-Af Amer) 75.0 (>60) BUN/Creatinine Ratio 13.3 (8-20) Glucose 92 (70-100) mg/dL Calcium 9.2 (8.6-10.3) mg/dL Total Bilirubin 0.70 (0.2-1.0) mg/dL AST 16 (13-39) U/L ALT 13 (7-52) U/L Alkaline Phosphatase 44 (34-104) U/L Total Protein 6.5 (6.4-8.9) g/dL Albumin 3.9 (3.2-5.2) g/dL Globulin 2.6 (2-4) g/dL Albumin/Globulin Ratio 1.5 (1-3) TSH 2.63 (0.34-5.60) mcIU/mL Urine Color Yellow Urine Appearance Clear Urine pH 5.0 (5-9) Ur Specific [place] 1.013 (1.010-1.030) Urine Protein Negative (Negative) Urine Ketones 2+ H (Negative) Urine Blood Negative (Negative) Urine Nitrate Negative (Negative) Urine Bilirubin Negative (Negative) Urine Urobilinogen Negative (Negative) Ur Leukocyte Esterase Negative (Negative) Urine Glucose Negative (Negative) Salicylates < 2.50 (<30) mg/dL Urine Opiates Screen None detected (None Detect) Acetaminophen < 15 mcg/mL Ur Barbiturates Screen None detected (None Detect) Ur Phencyclidine Scrn None detected (None Detect) Ur Amphetamines Screen None detected (None Detect) U Benzodiazepines Scrn None detected (None Detect) Urine Cocaine Screen None detected (None Detect) U Cannabinoids Screen None detected (None Detect) Serum Alcohol < 10 (<10) mg/dL 07/03/17 Range/Units 12:50 WBC 6.5 (3.5-10.8) 10^3/ul RBC 4.98 (4.0-5.4) 10^6/ul Hgb 15.5 (14.0-18.0) g/dl Hct 43 (42-52) % MCV 87 (80-94) fL MCH 31 (27-31) pg MCHC 36 (31-36) g/dl RDW 14 (10.5-15) % Plt Count 263 (150-450) 10^3/ul MPV 6 L (7.4-10.4) um3 Neut % (Auto) 76.4 (38-83) % Lymph % (Auto) 15.0 L (25-47) % Grant % (Auto) 7.8 (1-9) % Eos % (Auto) 0.3 (0-6) % Baso % (Auto) 0.5 (0-2) % Absolute Neuts (auto) 5.0 (1.5-7.7) 10^3/ul Absolute Lymphs (auto) 1.0 (1.0-4.8) 10^3/ul Absolute Monos (auto) 0.5 (0-0.8) 10^3/ul Absolute Eos (auto) 0 (0-0.6) 10^3/ul Absolute Basos (auto) 0 (0-0.2) 10^3/ul Absolute Nucleated RBC 0 10^3/ul Nucleated RBC % 0 Sodium (133-145) mmol/L Potassium (3.5-5.0) mmol/L Chloride (101-111) mmol/L Carbon Dioxide (22-32) mmol/L Anion Gap (2-11) mmol/L BUN (6-24) mg/dL Creatinine (0.67-1.17) mg/dL Est GFR ( Amer) (>60) Est GFR (Non-Af Amer) (>60) BUN/Creatinine Ratio (8-20) Glucose (70-100) mg/dL Calcium (8.6-10.3) mg/dL Total Bilirubin (0.2-1.0) mg/dL AST (13-39) U/L ALT (7-52) U/L Alkaline Phosphatase (34-104) U/L Total Protein (6.4-8.9) g/dL Albumin (3.2-5.2) g/dL Globulin (2-4) g/dL Albumin/Globulin Ratio (1-3) TSH (0.34-5.60) mcIU/mL Urine Color Urine Appearance Urine pH (5-9) Ur Specific [place] (1.010-1.030) Urine Protein (Negative) Urine Ketones (Negative) Urine Blood (Negative) Urine Nitrate (Negative) Urine Bilirubin (Negative) Urine Urobilinogen (Negative) Ur Leukocyte Esterase (Negative) Urine Glucose (Negative) Salicylates (<30) mg/dL Urine Opiates Screen (None Detect) Acetaminophen mcg/mL Ur Barbiturates Screen (None Detect) Ur Phencyclidine Scrn (None Detect) Ur Amphetamines Screen (None Detect) U Benzodiazepines Scrn (None Detect) Urine Cocaine Screen (None Detect) U Cannabinoids Screen (None Detect) Serum Alcohol (<10) mg/dL Result Diagrams: 07/03/17 12:50 07/03/17 12:50 Lab Statement: Any lab studies that have been ordered have been reviewed, and results considered in the medical decision making process. 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 He was medically cleared and underwent a MHE. Dr. Lopez saw him and he will be admitted to the Unit. - Differential Dx/Clinical Impression Provider Diagnosis: Acute psychosis - Physician Notifications Discussed Care Of Patient With: Rufus Lopez Time Discussed With Above Provider: 14:01 Instructed by Provider To: Admit As Inpatient - Dr. Lopez will admit the patient involuntarily. Discharge - Discharge Plan Condition: Good Disposition: [facility] The documentation as recorded by the Sebastian slater Jennifer accurately reflects the service I personally performed and the decisions made by me, Radhames Alcaraz MD.
[2017-07-04] MEDS ORDERED: DOXYcycline CAP(*) 100 MG PO SCH (13:00)
[2017-07-04] MEDS: Sertraline* 50 MG TAB PO SCH (14:06)
[2017-07-04] MEDS: hydrOXYzine SYRUP* 50 MG/25 ML UDC (2 MG/ML) PO PRN (14:15)
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
[2017-07-04] MEDS: hydrOXYzine SYRUP* 50 MG/25 ML UDC (2 MG/ML) PO SCH (21:09)
[2017-07-04] MEDS: DOXYcycline CAP(*) 100 MG PO SCH (21:09)
[2017-07-04] MEDS: OLANzapine TAB*ODT* 5 MG PO SCH (21:09)
--- NOTE | 2017-07-04 21:13 | CONS ---
CONSULTATION REPORT: DATE OF CONSULT: 07/04/17 REQUESTING PHYSICIAN: Dr. Rufus Lopez. TIME OF CONSULTATION: 4:30 p.m. REASON FOR CONSULTATION: Medical co-management. CHIEF COMPLAINT: Involuntary psychiatric admission. HISTORY OF PRESENT ILLNESS: This is a 71-year-old man well known to me from a recent admission, who was admitted to the psychiatric unit on 07/03/17 approximately 1 week after I discharged him. On his last admission from through 06/27/17, he was treated by nv for acute urinary retention, which resolved after 3 days. During that admission, he was evaluated by Neurology and Psychiatry for bizarre behavior and psychotic statements and was thought to have a primary psychosis. However, he did have an extensive medical workup including a lumbar puncture where CSF was sent for many studies. At the time of his discharge, several of them were pending. At this time, it appears most of them are resulted and all remained negative; however, there may be an autoimmune CSF panel that is pending at [facility]. When he went home, he reports being very concerned thought he was retaining urine; however, he did follow up with Urology as I recommended and they confirmed no postvoid residual. He states that this did not comfort him and he remained fixated on his urine output. I interviewed him today alone and without his in the room. He says he is very sad about being here. According to the record and the emergency room visit, his brought him in because he continued to express obsessive thoughts about money and his urine output and bowel movements. He was admitted involuntarily to [facility] from the emergency department and is being treated for major depressive disorder with psychotic features. PAST MEDICAL HISTORY: Hypertension, BPH, history of nephrolithiasis, obstructive sleep apnea, and anxiety. CURRENT MEDICATIONS: 1. Doxycycline 100 mg b.i.d. 2. Hydroxyzine 25 mg q.8 p.r.n. anxiety. 3. Hydroxyzine 50 mg p.o. q.h.s. 4. Olanzapine 5 mg q.h.s. 5. Sertraline 50 mg daily. 6. Flomax 0.4 mg daily. ALLERGIES: No known drug allergies. 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 He is a nonsmoker, nondrinker and uses no illicit drugs. REVIEW OF SYSTEMS: Positive for sore throat and pain when he swallows and positive for weight loss. He denies fevers, chills, headaches, blurry vision, chest pain, shortness of breath, abdominal pain, or diarrhea. PHYSICAL EXAMINATION: General: He is pleasant and recognizes me. He is anxious, but in no distress and nontoxic appearing. HEENT: Pupils equal, round , and reactive to light. No nystagmus. Moist mucosa. No pharyngeal erythema or exudates. Tonsils are absent. Neck: No cervical adenopathy. No JVP. Chest: Regular rate and rhythm. PMI nondisplaced. Lungs: Clear bilaterally. Abdomen: Soft, nontender, nondistended. No guarding or rebound. Extremities: Strength 5+ throughout. No edema. No rashes or ulcers. Neurologic: Follows complex commands. Sensation is intact. Coordination is intact. Psychiatric: Nervous and paranoid. DIAGNOSTIC STUDIES/LAB DATA: Labs in the emergency department on 07/03/17: white blood cell 6.5, hemoglobin 15.5, platelets 263. Sodium 132, potassium 4.1 , chloride 100, bicarb 21, BUN 13, creatinine 0.98, glucose 92, calcium 9.2, albumin 3.9. Total protein 6.5, total bilirubin 0.7, ALT 13, AST 16, alk phos 44. UA showed +2 ketones. TSH 2.62. ASSESSMENT AND PLAN: This is a 71-year-old man known to me from a recent admission with history of benign prostatic hypertrophy, anxiety, hypertension and obstructive sleep apnea, who was admitted to [facility] on 07/03/17 and is being treated for major depressive disorder with psychotic features. I was asked to see the patient today for medical comanagement. 1. Benign prostatic hypertrophy with recent acute urinary retention. He was recently seen by Urology in the outpatient setting and had no urinary retention. He should be continued on Flomax 0.4 mg daily. He reports occasional urinary hesitancy, but no abdominal distention or discomfort. Should this arrive, a bladder scan can be obtained and he should receive a catheter if there is greater than 300 cc postvoid residual. Please feel free to call us back should this occur. 2. Concern for Lyme disease. I presumed this is why he is on the doxycycline. However, based on his outpatient Lyme antibodies, he does not have Lyme disease and doxycycline can be discontinued. The only positive finding in his lab work was a positive IgG which does not warrant treatment at this time. 3. Hypertension. He is not currently on any antihypertensives and his blood pressure is well controlled given his age over 58 years old. His goal systolic blood pressure is less than 150. Please feel free to call us back should his blood pressure needs better control. 4. Major depressive disorder with psychotic features. Treatment as per Psychiatry. I see no metabolic or infectious etiology that could be contributing to his psychosis. 5. Ketonuria. This was present on admission and likely reflects his poor p.o. intake recently. Thank you for allowing us to participate in the care of this patient. Please call me back with any questions should they arise, my number is [phone]. [id number]/[facility] #: [id number] MTDD
[2017-07-05] MEDS: Tamsulosin CAP* 0.4 MG PO SCH (08:32)
[2017-07-05] MEDS: Sertraline* 50 MG TAB PO SCH (08:32)
[2017-07-05] MEDS: DOXYcycline CAP(*) 100 MG PO SCH ×2 (08:33→20:57)
[2017-07-05] MEDS: hydrOXYzine SYRUP* 50 MG/25 ML UDC (2 MG/ML) PO PRN (14:59)
[2017-07-05] MEDS: OLANzapine TAB*ODT* 5 MG PO SCH (20:57)
[2017-07-05] MEDS: hydrOXYzine SYRUP* 50 MG/25 ML UDC (2 MG/ML) PO SCH (20:58)
[2017-07-06] MEDS: DOXYcycline CAP(*) 100 MG PO SCH (08:49)
[2017-07-06] MEDS: Tamsulosin CAP* 0.4 MG PO SCH (08:49)
[2017-07-06] MEDS: Sertraline* 50 MG TAB PO SCH (08:49)
[2017-07-06] MEDS: hydrOXYzine SYRUP* 50 MG/25 ML UDC (2 MG/ML) PO PRN (13:37)
--- NOTE | 2017-07-06 18:17 | PN ---
Subjective - Subjective Subjective: Jonas is primarily seclusive to his room, he interacts little with others when in the milieu. He reports eating at least 1/4 of every meal served. He complains of feeling unwell, run down, dizzy and weak. He worries about his identity being known to other patients, yet states "I only told one patient!" He denies SI or side effects from prescribed meds. Objective - Appearance Appearance: Other - Frail Dysmorphic Features: No Hygiene: Normal Grooming: Well Kept - Behavior Psychomotor Activities: Abnormal-Decreased Exhibits Abnormal Movement: No - Attitude and Relatedness Attitude and Relatedness: Cooperative Eye Contact: Fair - Speech Quality: Unpressured Latencies: Long Quantity: Terse - Mood Patient's Decription of Mood: "Terrible" - Affect Observed Affect: Constricted Affect Consistent with: Dysphoria - Thought Process Patient's Thought Process: Disorganized, Impoverished Thought Content: No Passive Wish, No Suicidal Planning, No Homicidal Ideation, No Paranoid Ideation - Sensorium Experiencing Hallucinations: No, Sensorium is Clear - Level of Consciousness Level of Consciousness: Alert Orientation: Yes Intact - Impulse Control Impulse Control: Intact - Insight and Judgement Insight and Judgement: Impaired - Group Participation Particating in Group Activities: No - Medication Management Medication Management Adherence: Yes Assessment - Assessment Merits Inpatient Hospitalization: For Ongoing Evaluation, Consolidate Improvements, For Discharge Planning Inpatient DSM-IV Dx: REGINA; Clinical Impression: ongoing impairing mood and anxiety symptoms, denying suicidality, tolerating medication trials, he needs continued admission for stabilization. Plan - Plan Treatment Plan: Name: JONAS LAWSON Birthdate: 1945 [id number] Medications: Current Medications Hydroxyzine HCl (Atarax Syrup*) 50 mg PO BEDTIME [facility] Last Admin: 07/05/17 20:58 Dose: 50 mg Hydroxyzine HCl (Atarax Syrup*) 25 mg PO Q8H PRN PRN Reason: ANXIETY Last Admin: 07/06/17 13:37 Dose: 25 mg Olanzapine (Zyprexa * Tab Odt) 5 mg PO BEDTIME [facility] Last Admin: 07/05/17 20:57 Dose: 5 mg Sertraline HCl (Zoloft*) 50 mg PO DAILY [facility] Last Admin: 07/06/17 08:49 Dose: 50 mg Tamsulosin HCl (Flomax Cap*) 0.4 mg PO DAILY [facility] Last Admin: 07/06/17 08:49 Dose: 0.4 mg - Discharge Plan Discharge Plan: Outpatient Follow Up Outpatient Program: [facility]
[2017-07-06] MEDS: hydrOXYzine SYRUP* 50 MG/25 ML UDC (2 MG/ML) PO SCH (20:55)
[2017-07-06] MEDS: OLANzapine TAB*ODT* 5 MG PO SCH (20:55)
[2017-07-07] MEDS ORDERED: Docusate CAP* 100 MG PO PRN (08:14)
[2017-07-07] MEDS: Tamsulosin CAP* 0.4 MG PO SCH (10:03)
[2017-07-07] MEDS: Sertraline* 50 MG TAB PO SCH (10:03)
[2017-07-07] MEDS: hydrOXYzine SYRUP* 50 MG/25 ML UDC (2 MG/ML) PO PRN (10:04)
--- NOTE | 2017-07-07 13:36 | PN ---
Subjective - Subjective Date of Service: 07/07/17 Service Type: 69750 Hosp care 25 min moderate complexity Subjective: Jonas ("John") remains negativistic, stressed and delusional. He reports that he did not take his medications last night when staff notes indicate that he did. He also made a statement earlier to a nurse that staff had held him down on his bed last night. This is totally inconsistent with staff documentation. John is depressed and talks fatalistically about his financial situation and pending destitution. He is taking meds but only eating 1/4 of his meals. Objective - Appearance Appearance: Thin Framed Dysmorphic Features: No Hygiene: Normal Grooming: Fairly Well Kept - Behavior Psychomotor Activities: Abnormal-Decreased Exhibits Abnormal Movement: No - Attitude and Relatedness Attitude and Relatedness: Psychotically Related Eye Contact: Fair - Speech Quality: Unpressured Latencies: Normal Quantity: Appropriate - Mood Patient's Decription of Mood: "Terrible" - Affect Observed Affect: Constricted Affect Consistent with: Dysphoria - Thought Process Patient's Thought Process: Circumstantial Thought Content: Yes Paranoid Ideation, No Passive Wish, No Suicidal Planning, No Homicidal Ideation - Sensorium Experiencing Hallucinations: No, Sensorium is Clear Type of Hallucinations: Visual: No, Auditory: No, Command: No - Level of Consciousness Level of Consciousness: Alert Orientation: Yes Intact, Yes Orientated to Time, Yes Orientated to Place, Yes Orientated to Person - Impulse Control Impulse Control: Poor - Insight and Judgement Insight and Judgement: Impaired - Group Participation Particating in Group Activities: No - Medication Management Medication Management Adherence: Yes Assessment - Assessment Merits Inpatient Hospitalization: For Immediate Safety, For Stabilization Inpatient DSM-IV Dx: MDD, single episode, severe with psychotic features Clinical 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 Plan - Plan Treatment Plan: Name: JONAS LAWSON Birthdate: 1945 [id number] The patient is taking a combination of doxycycline for presumed chronic Lymes, tamsulosin for BPH, sertraline for depression and olanzapine for psychosis. We will increase sertraline to 100mg PO qday and increase olanzapine to 7.5mg PO qhs. Continue inpatient-level services. Check influenza and metabolic studies. Appreciate hospitalist input. Continued Medication Management: Different Medication Medications: Current Medications Docusate Sodium (Colace Cap*) 100 mg PO DAILY PRN PRN Reason: CONSTIPATION Hydroxyzine HCl (Atarax Syrup*) 50 mg PO BEDTIME [facility] Last Admin: 07/06/17 20:55 Dose: 50 mg Hydroxyzine HCl (Atarax Syrup*) 25 mg PO Q8H PRN PRN Reason: ANXIETY Last Admin: 07/07/17 10:04 Dose: 25 mg Magnesium Hydroxide (Milk Of Magnesia Liq*) 30 ml PO Q6H PRN PRN Reason: CONSTIPATION Olanzapine (Zyprexa * Tab Odt) 7.5 mg PO BEDTIME [facility] Sertraline HCl (Zoloft*) 100 mg PO DAILY [facility] Tamsulosin HCl (Flomax Cap*) 0.4 mg PO DAILY [facility] Last Admin: 07/07/17 10:03 Dose: 0.4 mg - Discharge Plan Discharge Plan: Inpatient Hospitalization
[2017-07-07] MEDS: Magnesium Hydroxide LIQ* 30 ML UDC PO PRN (14:02)
[2017-07-07] MEDS: Saline NASAL DROPS 0.65%* 1 DROP BTL BOTH NARES PRN (19:39)
[2017-07-07] MEDS: hydrOXYzine SYRUP* 50 MG/25 ML UDC (2 MG/ML) PO SCH (20:27)
[2017-07-07] MEDS: OLANzapine TAB*ODT* 5 MG PO SCH (20:29)
[2017-07-08] MEDS: Tamsulosin CAP* 0.4 MG PO SCH (08:49)
[2017-07-08] MEDS: Sertraline* 100 MG TAB PO SCH (08:49)
--- NOTE | 2017-07-08 12:03 | PN ---
Subjective - Subjective Date of Service: 07/08/17 Service Type: 63180 Hosp care 25 min moderate complexity Subjective: John continues to present as hesitant and confused. For example, he perseverates about various items of clothing that he believes he's misplaced or were taken by his roommate, who was discharged this morning. He makes other odd statements, such as "That pair of pajamas there didn't fit me before, but they fit last night so I wore them to bed." He becomes bogged down at times trying to come up with meaningless details, such as the odors he's smelling and where he has place certain objects. He continues to have distorted, fatalistic thoughts about his finances and occupational standing. "If I walked onto the campus of [facility] I would probably be arrested or escorted off the grounds." He denies SI or HI. He appears to be tolerating his mediations well. Objective - Appearance Appearance: Well Developed/Nourished, Thin Framed Dysmorphic Features: No Hygiene: Normal Grooming: Fairly Well Kept - Behavior Psychomotor Activities: Abnormal-Decreased Exhibits Abnormal Movement: No - Attitude and Relatedness Attitude and Relatedness: Cooperative Eye Contact: Fair - Speech Quality: Unpressured Latencies: Normal Quantity: Appropriate - Mood Patient's Decription of Mood: "Anxious" - Affect Observed Affect: Constricted Affect Consistent with: Dysphoria - Thought Process Patient's Thought Process: Circumstantial Thought Content: Yes Paranoid Ideation, No Passive Wish, No Suicidal Planning, No Homicidal Ideation - Sensorium Experiencing Hallucinations: No, Sensorium is Clear Type of Hallucinations: Visual: No, Auditory: No, Command: No - Level of Consciousness Level of Consciousness: Alert Orientation: Yes Intact, Yes Orientated to Time, Yes Orientated to Place, Yes Orientated to Person - Impulse Control Impulse Control: Poor - Insight and Judgement Insight and Judgement: Impaired - Group Participation Particating in Group Activities: No - Medication Management Medication Management Adherence: Yes Assessment - Assessment Merits Inpatient Hospitalization: For Immediate Safety, For Stabilization Inpatient DSM-IV Dx: MDD, single episode, severe with psychotic features Clinical 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 We have increased sertraline to 100mg PO qday and increased olanzapine to 7.5mg PO qhs. Continue inpatient-level services. Check influenza and metabolic studies. Appreciate hospitalist input. Continued Medication Management: Different Medication Medications: Current Medications Docusate Sodium (Colace Cap*) 100 mg PO DAILY PRN PRN Reason: CONSTIPATION Hydroxyzine HCl (Atarax Syrup*) 25 mg PO Q8H PRN PRN Reason: ANXIETY Last Admin: 07/07/17 10:04 Dose: 25 mg Hydroxyzine HCl (Atarax Syrup*) 25 mg PO BEDTIME [facility] Magnesium Hydroxide (Milk Of Magnesia Liq*) 30 ml PO Q6H PRN PRN Reason: CONSTIPATION Last Admin: 07/07/17 14:02 Dose: 30 ml Olanzapine (Zyprexa * Tab Odt) 7.5 mg PO BEDTIME [facility] Last Admin: 07/07/17 20:29 Dose: 7.5 mg Sertraline HCl (Zoloft*) 100 mg PO DAILY [facility] Last Admin: 07/08/17 08:49 Dose: 100 mg Sodium Chloride (Sodium Chloride 0.65% Nasal Drops*) 1 drop BOTH NARES Q4H PRN PRN Reason: CONGESTION Last Admin: 07/07/17 19:39 Dose: 1 drop Tamsulosin HCl (Flomax Cap*) 0.4 mg PO DAILY [facility] Last Admin: 07/08/17 08:49 Dose: 0.4 mg - Discharge Plan Discharge Plan: Inpatient Hospitalization Lab Results - Lab Results Lab Results: 07/08/17 07/08/17 08:43 08:43 Hemoglobin A1c 5.6 Triglycerides 125 Cholesterol 210 LDL Cholesterol 127 HDL Cholesterol 57.6
--- NOTE | 2017-07-08 13:13 | PN ---
MHU: Group Therapy Note - Service Type Service Type: [id number] Group Psychotherapy - Cognitive Behavioral Group Therapy ( CBT):Patient was attentive and participatory in CBT programming this morning, and remained in good behavioral control. Patient expressed positive insights regarding relevant treatment interventions and goals.
[2017-07-08] MEDS: OLANzapine TAB*ODT* 5 MG PO SCH (20:33)
[2017-07-08] MEDS: hydrOXYzine SYRUP* 50 MG/25 ML UDC (2 MG/ML) PO SCH (20:35)
[2017-07-09] MEDS: Tamsulosin CAP* 0.4 MG PO SCH (08:20)
[2017-07-09] MEDS: Sertraline* 100 MG TAB PO SCH (08:20)
--- NOTE | 2017-07-09 11:39 | PN ---
Subjective - Subjective Date of Service: 07/09/17 Service Type: 00624 Hosp care 25 min moderate complexity Subjective: John is endorsing 8/10 depression scores and 6/10 anxiety. "Things still seem very dark. I'm going to groups but I can't seem to participate. I don't have the right responses to the questions." We take some time to process everything that he has been through recently and he continues to feel as though he let his coworkers and staff down at [facility], so much so that he thinks he may have committed criminal negligence. 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 I have to go to Dr. Montilla to overlook my work. He's told you that I'm not a bother to him but that isn't true." Staff notes indicate that John has been more present on the unit and attending better to ADLs. He is assigned the relatively simple task today of taking a shower and he agrees to this. He denies SI or HI. PO consumption is improving slightly. Objective - Appearance Appearance: Thin Framed Dysmorphic Features: No Hygiene: Normal Grooming: Well Kept - Behavior Psychomotor Activities: Abnormal-Decreased Exhibits Abnormal Movement: No - Attitude and Relatedness Attitude and Relatedness: Cooperative Eye Contact: Fair - Speech Quality: Unpressured Latencies: Normal Quantity: Appropriate - Mood Patient's Decription of Mood: "Sad" - Affect Observed Affect: Constricted Affect Consistent with: Dysphoria - Thought Process Patient's Thought Process: Circumstantial Thought Content: Yes Paranoid Ideation, No Passive Wish, No Suicidal Planning, No Homicidal Ideation - Sensorium Experiencing Hallucinations: No, Sensorium is Clear Type of Hallucinations: Visual: No, Auditory: No, Command: No - Level of Consciousness Level of Consciousness: Alert Orientation: Yes Intact, Yes Orientated to Time, Yes Orientated to Place, Yes Orientated to Person - Impulse Control Impulse Control: Tenuous - Insight and Judgement Insight and Judgement: Fair - Group Participation Particating in Group Activities: Yes - Medication Management Medication Management Adherence: Yes Assessment - Assessment Merits Inpatient Hospitalization: For Immediate Safety, For Stabilization Inpatient DSM-IV Dx: MDD, single episode, severe with psychotic features Clinical 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 We have increased sertraline to 100mg PO qday and increased olanzapine to 7.5mg PO qhs. Continue inpatient-level services. Appreciate hospitalist input. Continued Medication Management: Different Medication Medications: Current Medications Docusate Sodium (Colace Cap*) 100 mg PO DAILY PRN PRN Reason: CONSTIPATION Hydroxyzine HCl (Atarax Syrup*) 25 mg PO Q8H PRN PRN Reason: ANXIETY Last Admin: 07/07/17 10:04 Dose: 25 mg Hydroxyzine HCl (Atarax Syrup*) 25 mg PO BEDTIME [facility] Last Admin: 07/08/17 20:35 Dose: 25 mg Magnesium Hydroxide (Milk Of Magnesia Liq*) 30 ml PO Q6H PRN PRN Reason: CONSTIPATION Last Admin: 07/07/17 14:02 Dose: 30 ml Olanzapine (Zyprexa * Tab Odt) 7.5 mg PO BEDTIME [facility] Last Admin: 07/08/17 20:33 Dose: 7.5 mg Sertraline HCl (Zoloft*) 100 mg PO DAILY [facility] Last Admin: 07/09/17 08:20 Dose: 100 mg Sodium Chloride (Sodium Chloride 0.65% Nasal Drops*) 1 drop BOTH NARES Q4H PRN PRN Reason: CONGESTION Last Admin: 07/07/17 19:39 Dose: 1 drop Tamsulosin HCl (Flomax Cap*) 0.4 mg PO DAILY [facility] Last Admin: 07/09/17 08:20 Dose: 0.4 mg - Discharge Plan Discharge Plan: Inpatient Hospitalization Lab Results - Lab Results Lab Results: 07/08/17 07/08/17 07/09/17 08:43 08:43 10:10 Hemoglobin A1c 5.6 Triglycerides 125 Cholesterol 210 LDL Cholesterol 127 HDL Cholesterol 57.6 Influenza A (Rapid) Negative Influenza B (Rapid) Negative
[2017-07-09] MEDS: hydrOXYzine SYRUP* 50 MG/25 ML UDC (2 MG/ML) PO PRN (14:45)
[2017-07-09] MEDS: Saline NASAL DROPS 0.65%* 1 DROP BTL BOTH NARES PRN (21:04)
[2017-07-09] MEDS: OLANzapine TAB*ODT* 5 MG PO SCH (21:04)
[2017-07-09] MEDS: hydrOXYzine SYRUP* 50 MG/25 ML UDC (2 MG/ML) PO SCH (21:04)
[2017-07-10] MEDS: Tamsulosin CAP* 0.4 MG PO SCH (09:05)
[2017-07-10] MEDS: Sertraline* 100 MG TAB PO SCH (09:05)
--- NOTE | 2017-07-10 11:43 | PN ---
MHU: Group Therapy Note - Service Type Service Type: [id number] Group Psychotherapy - Cognitive Behavioral Group Therapy ( CBT):Patient was attentive and participatory in CBT programming this morning, and remained in good behavioral control. Patient expressed positive insights regarding relevant treatment interventions and goals.
--- NOTE | 2017-07-10 14:37 | PN ---
Subjective - Subjective Date of Service: 07/10/17 Service Type: [id number] Hosp care 25 min moderate complexity Subjective: John is still quite pessimistic about his financial and occupational prospects, but is taking things in stride. "I'm trying to think more positively about all those things." He is going to groups and participating as much as he can, although he admits to getting easily confused or caught up in the details of the group topics. He is eating between 1/4 and 1/2 of meals per staff account. "I don't have an appetite yet. I'm mostly forcing myself to eat." He denies SI or HI. His delusions seem less forceful. Objective - Appearance Appearance: Thin Framed Dysmorphic Features: No Hygiene: Normal Grooming: Well Kept - Behavior Psychomotor Activities: Abnormal-Decreased Exhibits Abnormal Movement: No - Attitude and Relatedness Attitude and Relatedness: Cooperative Eye Contact: Good - Speech Quality: Unpressured Latencies: Normal Quantity: Appropriate - Mood Patient's Decription of Mood: "Anxious" - Affect Observed Affect: Constricted Affect Consistent with: Dysphoria - Thought Process Patient's Thought Process: Coherent Thought Content: Yes Paranoid Ideation, No Passive Wish, No Suicidal Planning, No Homicidal Ideation - Sensorium Experiencing Hallucinations: No, Sensorium is Clear Type of Hallucinations: Visual: No, Auditory: No, Command: No - Level of Consciousness Level of Consciousness: Alert Orientation: Yes Intact, Yes Orientated to Time, Yes Orientated to Place, Yes Orientated to Person - Impulse Control Impulse Control: Tenuous - Insight and Judgement Insight and Judgement: Fair - Group Participation Particating in Group Activities: Yes - Medication Management Medication Management Adherence: Yes Assessment - Assessment Merits Inpatient Hospitalization: For Immediate Safety, For Stabilization Inpatient DSM-IV Dx: MDD, single episode, severe with psychotic features Clinical 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 Plan - Plan Treatment Plan: Name: JONAS LAWSON Birthdate: 1945 [id number] The patient is taking a combination of tamsulosin for BPH, sertraline for depression and olanzapine for psychosis. We have increased sertraline to 100mg PO qday and increased olanzapine to 7.5mg PO qhs. Continue inpatient-level services. Appreciate hospitalist input. Continued Medication Management: Different Medication Medications: Current Medications Docusate Sodium (Colace Cap*) 100 mg PO DAILY PRN PRN Reason: CONSTIPATION Hydroxyzine HCl (Atarax Syrup*) 25 mg PO Q8H PRN PRN Reason: ANXIETY Last Admin: 07/09/17 14:45 Dose: 25 mg Hydroxyzine HCl (Atarax Syrup*) 25 mg PO BEDTIME [facility] Last Admin: 07/09/17 21:04 Dose: 25 mg Magnesium Hydroxide (Milk Of Magnesia Liq*) 30 ml PO Q6H PRN PRN Reason: CONSTIPATION Last Admin: 07/07/17 14:02 Dose: 30 ml Olanzapine (Zyprexa * Tab Odt) 7.5 mg PO BEDTIME [facility] Last Admin: 07/09/17 21:04 Dose: 7.5 mg Sertraline HCl (Zoloft*) 100 mg PO DAILY [facility] Last Admin: 07/10/17 09:05 Dose: 100 mg Sodium Chloride (Sodium Chloride 0.65% Nasal Drops*) 1 drop BOTH NARES Q4H PRN PRN Reason: CONGESTION Last Admin: 07/09/17 21:04 Dose: 1 drop Tamsulosin HCl (Flomax Cap*) 0.4 mg PO DAILY [facility] Last Admin: 07/10/17 09:05 Dose: 0.4 mg - Discharge Plan Discharge Plan: Inpatient Hospitalization Lab Results - Lab Results Lab Results: 07/08/17 07/08/17 07/09/17 08:43 08:43 10:10 Hemoglobin A1c 5.6 Triglycerides 125 Cholesterol 210 LDL Cholesterol 127 HDL Cholesterol 57.6 Influenza A (Rapid) Negative Influenza B (Rapid) Negative
--- NOTE | 2017-07-10 16:34 | PN ---
MHU: Group Therapy Note - Service Type Service Type: [id number] Group Psychotherapy - Medication Education Group: Patient was attentive and participatory in group, and remained in good behavioral control. Patient expressed positive insights regarding relevant treatment interventions. Patient stated understanding of material discussed and had appropriate questions.
[2017-07-10] MEDS: OLANzapine TAB*ODT* 5 MG PO SCH (20:52)
[2017-07-10] MEDS: hydrOXYzine SYRUP* 50 MG/25 ML UDC (2 MG/ML) PO SCH (20:53)
[2017-07-11] MEDS: Tamsulosin CAP* 0.4 MG PO SCH (08:25)
[2017-07-11] MEDS: Sertraline* 100 MG TAB PO SCH (08:25)
[2017-07-11] MEDS ORDERED: Acetaminophen TAB* 325 MG PO PRN (11:05)
[2017-07-11] MEDS ORDERED: Magnesium CITRATE* 300 ML BTL PO PRN (11:06)
--- NOTE | 2017-07-11 11:13 | PN ---
Subjective - Subjective Date of Service: 07/11/17 Service Type: [id number] Hosp care 25 min moderate complexity Subjective: John is improving but does not feel safe to return home as yet. He continues having negative cognitions, such as the thought that he cannot keep up with other patients in the groups, but acknowledges that his outlook has improved somewhat. "I'm doing things for myself much better." We have noted improvements in his ADLs and PO intake. He continues to deny SI or HI. He is agreeable to a family meeting with his early next week. Patient continues to complain of constipation. Objective - Appearance Appearance: Thin Framed Dysmorphic Features: No Hygiene: Normal Grooming: Well Kept - Behavior Psychomotor Activities: Abnormal-Decreased Exhibits Abnormal Movement: No - Attitude and Relatedness Attitude and Relatedness: Cooperative Eye Contact: Good - Speech Quality: Unpressured Latencies: Normal Quantity: Appropriate - Mood Patient's Decription of Mood: "Anxious" - Affect Observed Affect: Fair Affect Consistent with: Dysphoria - Thought Process Patient's Thought Process: Coherent Thought Content: Yes Paranoid Ideation, No Passive Wish, No Suicidal Planning, No Homicidal Ideation - Sensorium Experiencing Hallucinations: No, Sensorium is Clear Type of Hallucinations: Visual: No, Auditory: No, Command: No - Level of Consciousness Level of Consciousness: Alert Orientation: Yes Intact, Yes Orientated to Time, Yes Orientated to Place, Yes Orientated to Person - Impulse Control Impulse Control: Tenuous - Insight and Judgement Insight and Judgement: Fair - Group Participation Particating in Group Activities: Yes - Medication Management Medication Management Adherence: Yes Assessment - Assessment Merits Inpatient Hospitalization: Consolidate Improvements, Pending Safe DC Plan Inpatient DSM-IV Dx: MDD, single episode, severe with psychotic features Clinical 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 Plan - Plan Treatment Plan: Name: JONAS LAWSON Birthdate: 1945 [id number] The patient is taking a combination of tamsulosin for BPH, sertraline for depression and olanzapine for psychosis. We have increased sertraline to 100mg PO qday and increased olanzapine to 7.5mg PO qhs. Continue inpatient-level services. Family meeting and possible discharge Friday (07/14). Continued Medication Management: Different Medication Medications: Current Medications Acetaminophen (Tylenol Tab*) 650 mg PO Q6H PRN PRN Reason: PAIN Hydroxyzine HCl (Atarax Syrup*) 25 mg PO Q8H PRN PRN Reason: ANXIETY Last Admin: 07/09/17 14:45 Dose: 25 mg Hydroxyzine HCl (Atarax Syrup*) 25 mg PO BEDTIME [facility] Last Admin: 07/10/17 20:53 Dose: 25 mg Magnesium Citrate (Citrate Of Magnesia*) 150 ml PO DAILY PRN PRN Reason: CONSTIPATION Magnesium Hydroxide (Milk Of Magnesia Liq*) 30 ml PO Q6H PRN PRN Reason: CONSTIPATION Last Admin: 07/07/17 14:02 Dose: 30 ml Olanzapine (Zyprexa * Tab Odt) 7.5 mg PO BEDTIME [facility] Last Admin: 07/10/17 20:52 Dose: 7.5 mg Sertraline HCl (Zoloft*) 100 mg PO DAILY [facility] Last Admin: 07/11/17 08:25 Dose: 100 mg Sodium Chloride (Sodium Chloride 0.65% Nasal Drops*) 1 drop BOTH NARES Q4H PRN PRN Reason: CONGESTION Last Admin: 07/09/17 21:04 Dose: 1 drop Tamsulosin HCl (Flomax Cap*) 0.4 mg PO DAILY [facility] Last Admin: 07/11/17 08:25 Dose: 0.4 mg - Discharge Plan Discharge Plan: Inpatient Hospitalization Lab Results - Lab Results Lab Results: 07/09/17 10:10 Influenza A (Rapid) Negative Influenza B (Rapid) Negative
--- NOTE | 2017-07-11 11:47 | PN ---
MHU: Group Therapy Note - Service Type Service Type: [id number] Group Psychotherapy - Cognitive Behavioral Group Therapy ( CBT):Patient was attentive and participatory in CBT programming this morning, and remained in good behavioral control. Patient expressed positive insights regarding relevant treatment interventions and goals.
[2017-07-11] MEDS: Magnesium Hydroxide LIQ* 30 ML UDC PO PRN (12:19)
[2017-07-11] MEDS: hydrOXYzine SYRUP* 50 MG/25 ML UDC (2 MG/ML) PO SCH (20:42)
[2017-07-11] MEDS: OLANzapine TAB*ODT* 5 MG PO SCH (20:43)
[2017-07-12] MEDS: Tamsulosin CAP* 0.4 MG PO SCH (08:08)
[2017-07-12] MEDS: Sertraline* 100 MG TAB PO SCH (08:08)
[2017-07-12] MEDS: hydrOXYzine SYRUP* 50 MG/25 ML UDC (2 MG/ML) PO SCH (20:16)
[2017-07-12] MEDS: OLANzapine TAB*ODT* 5 MG PO SCH (20:18)
[2017-07-13] MEDS: Tamsulosin CAP* 0.4 MG PO SCH (08:30)
[2017-07-13] MEDS: Sertraline* 100 MG TAB PO SCH (08:30)
[2017-07-13] MEDS: hydrOXYzine SYRUP* 50 MG/25 ML UDC (2 MG/ML) PO SCH (21:08)
[2017-07-13] MEDS: OLANzapine TAB*ODT* 5 MG PO SCH (21:09)
[2017-07-14] MEDS: Tamsulosin CAP* 0.4 MG PO SCH (08:00)
[2017-07-14] MEDS: Sertraline* 100 MG TAB PO SCH (08:00)
[2017-07-14 09:06] VITALS: BP 112/70
[2017-07-14] MEDS: Magnesium Hydroxide LIQ* 30 ML UDC PO PRN (14:02)
--- NOTE | 2017-07-15 12:44 | DS ---
DISCHARGE SUMMARY: DATE OF ADMISSION: 07/03/17 DATE OF DISCHARGE: 07/14/17 DISCHARGE DIAGNOSES: AXIS I: Major depressive disorder, severe with psychotic features. AXIS II: Deferred. AXIS III: Obstructive sleep apnea, chronic Lyme's disease, hypertension, hyperlipidemia, benign pros tatic hypertrophy, history of nephrolithiasis, kidney stone surgery, and tonsillectomy. AXIS IV: Severe primary support and occupational stressors. AXIS V: At the time of admission was 30 and at the time of discharge is 60. CONDITION AT THE TIME OF DISCHARGE: Improved. The patient is eating, drinking, and performing activ ities of daily living such as bathing and grooming with minimal assistance. His has arrived on the day of discharge for a family meeting and she feels that he is back to his baseline. The patient states that his mood is much better and he is clearly experiencing a marked reduction in his negativ e thinking. His thoughts are much less distorted and much less catastrophic. He seems more reality focused and has been safe on all checks. He is denying suicidal or homicidal ideations. He has been thoroughly participatory in all milieu activities including groups and social activities. He has be en very kind and involved with other patients on the unit and has been genuinely well-liked by both ruth currie and peers. The patient is requesting discharge and we feel that he could reasonably receive def initive care in a less restrictive setting. He is agreeable with continued medication and psychiatri c services in the community. MENTAL STATUS EXAM: The patient is an aging white male with blue eyes and graying hair. He is clean and well groomed. He makes excellent eye contact. Speech is slow and soft, but fluent with an exce llent vocabulary. Mood is euthymic with a full affect. Thought process is still somewhat slowed, bu t otherwise linear and goal directed. Thought content is significant for his desire to return to his home. He is denying suicidal or homicidal ideations. He denies auditory or visual hallucinations. Insight and judgement are fair given his willingness to follow up with outpatient treatment. Cognit ively, he is awake and alert with what would appear to be an above average intellect by virtue of his academic and occupational history. LABORATORY DATA: Metabolic testing was performed on the 07/08/17. At that time, hemoglobin A1c was 5.6, total cholesterol 210, triglycerides 125, LDL cholesterol 127, and HDL cholesterol 57.6. DISCHARGE INSTRUCTIONS TO THE PATIENT: Are as follows: Part A: Medications: He is takin. Sertraline 100 mg p.o. daily. 2. Olanzapine 7.5 mg p.o. q.h.s. 3. Tamsulosin 0.4 mg p.o. daily. 4. Hydroxyzine 25 mg p.o. b.i.d. Part B: Diet is regular. Part C: Activities as tolerated. The patient is a nonsmoker. There are no laboratory or diagnostic studies pending at the time of discharge. Part D: Followup Care: The patient will follow up with outpatient psychiatrist, Vero silveira 1 week of discharge. He will also follow up with his primary care provider, Dr. Alejo in [facility] within 1 week of discharge. Part E: Substance abuse followup is nonapplicable. 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 It was strongly felt in ou emergency room that the patient is unstable to take care of himself and warranted inpatient psychia tric treatment for this. This clinician first met Dr. Waldron on the 06/24/17 during a consultation w hen the patient had been admitted to the hospitalist service of Dr. Rosa Graham. At that time, he had been referred by Dr. Guzman Emanuel's office where he had presented as disoriented, paranoid, and confused. Although, he did test positive for historic evidence of Lyme disease. Dr. Emanuel di d not feel that this explained his cognitive or behavioral symptoms. Although, the patient was being treated for Lyme disease with doxycycline at the time of admission. It was felt by myself, the cons ulting neurologist Dr. Browning, Dr. Graham, and Dr. Emanuel that the patient's condition was psychia tric in nature. At the time of his initial evaluation on the medicine floor, he accepted a trial of low-dose quetiapine 25 mg nighty and started to improve and we felt that he could safely receive ashlyn tment in the outpatient setting. He was thereafter discharged from the medical service on the with followup with local psychiatrist, Dr. Vero Arshad. Unfortunately, the patient stopped eati ng and drinking and continued to be extremely paranoid with negative catastrophizing cognitions. He stopped taking his medications and presented with extremely distorted thinking, which aman to the lev el of psychosis. For example, if he expressed a belief that he could no longer pay his bills and that he would not be able to afford the heat for his house, this led him to reason that his pipes would b urst and cause flooding throughout the [facility]. Further distorted delusional beliefs were evid enced by the patient with regard to his bodily functions. He insisted that he could not void urine d espite the fact that he had seen an outpatient urologist just prior to admission and a bladder scan i ndicated that his voiding was normal. 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 He also endorsed some marital problems with his . Symptomatically, he endorsed anhedonia, g uilt, lower energy, decreased concentration, and a 10-pound weight loss. When I met with him, he ins isted that he had been mismanaging his funds and wound not have enough to retire and that he would be arrested for abandoning his duties at [facility] if he showed up there to [facility] HOSPITAL COURSE - PART B: Psychiatric treatment rendered: The patient was admitted to the adult [facility] unit on an involuntary 9.39 legal status and placed on q.15 minute checks for his own safety. We did resume therapy with sertraline 50 mg p.o. daily which was titrated up to the effectiv e dose of 100 mg daily. He tolerated this quite well. Due to his psychotic thoughts and lack of lizett etite, we switched him from quetiapine to olanzapine and titrated this dose up to 7.5 mg nightly whic h he similarly tolerated well. Other than this, we also treated him with twice daily hydroxyzine for anxiety and continued him on tamsulosin for prostatic hypertrophy. The patient's , Maryjane was highly involved in his care, visiting frequently and having multiple meetings with staff members to discuss his care. She felt that he progressively improved, which correlated well with what our obse rvations were on the unit. He began attending groups more frequently, coming out of his room, social izing with peers. Dr. Waldron is extremely gentle and kind and was well liked by everyone. His major depression started to lift and he started behaving and thinking in a more euthymic fashion and many of his distorted thoughts were greatly ameliorated. At this time, both the patient and the staff fee l that he could be safely served in a less restrictive setting and his is willing to take him ho me this afternoon. His follow up will be with Dr. Vero Arshad who I did speak with at the [facility] g of this hospitalization who is willing to accept him back as a patient. [id number]/[facility] #: [id number]
== END 2017-07-14 16:20 | disposition home or self-care (01) | DRG 751 ==
LOC: ED 10:17 → BSU 22:57
PROVIDERS: ADMIT Psychiatry & Neurology Psychiatry; ATTEND Psychiatry & Neurology Psychiatry
PROC: GZHZZZZ Group Psychotherapy (ICD-10-PCS; principal; 2017-07-08)
DX: F32.3 Major depressive disorder, single episode, severe with psychotic features (principal); A69.20 Lyme disease, unspecified; G47.33 Obstructive sleep apnea (adult) (pediatric); I10 Essential (primary) hypertension; E78.5 Hyperlipidemia, unspecified; N40.0 Benign prostatic hyperplasia without lower urinary tract symptoms; R63.4 Abnormal weight loss; R82.4 Acetonuria; F41.1 Generalized anxiety disorder; F50.89 Other specified eating disorder; Z87.442 Personal history of urinary calculi; Z81.8 Family history of other mental and behavioral disorders; Z90.49 Acquired absence of other specified parts of digestive tract; Z82.49 Family history of ischemic heart disease and other diseases of the circulatory system; Z83.3 Family history of diabetes mellitus; Z68.20 Body mass index [BMI] 20.0-20.9, adult
CPT/HCPCS: 36415; 80053; 80061; 80307; 80320; 80329; 81003; 83036; 84443; 85025; 87502; 90853; 99222; 99231; 99232; 99238; 99284; A9270-GY; G0480